=== PATIENT | male | born 1950 | race Caucasian/White ===

== ENCOUNTER 2018-11-06 10:56 | Inpatient (IN) | payer MEDICARE, MEDICAID ==
[2018-11-06] MEDS ORDERED: Lactated Ringer 1,000 ML IV ONE (11:32)
[2018-11-06 11:34] LABS: MEAN CELL VOLUME 90.7 fl (80-99); MEAN CORPUSCULAR HEMOGLOBIN 31.4 pg (27.0-31.0); MEAN CORPUSCULAR HGB CONC 34.6 pg (28.0-36.0); PLATELET COUNT 462 Th/cmm (150-400); RED BLOOD COUNT 2.39 Mil/cmm (3.80-5.80); RED CELL DISTRIBUTION WIDTH 12.3 % (11.5-20.0)
[2018-11-06 11:36] LABS: HEMATOCRIT 21.7 % (41.0-60); HEMOGLOBIN 7.5 gm/dL (12-16); WHITE BLOOD COUNT 17.5 Th/cmm (4.8-10.8)
[2018-11-06] MEDS ORDERED: Piperacillin Sodium/Tazobact 3.375 gm Vial IV ONE (11:41)
[2018-11-06 11:44] LABS: ALB/GLOB RATIO 1.1 (1.0-1.8); ALBUMIN 2.7 gm/dL (4.2-5.5); ALKALINE PHOSPHATASE 81 U/L (34-104); BILIRUBIN,TOTAL 0.5 mg/dL (0.3-1.0); BUN - UREA NITROGEN 73 mg/dL (7-25); CALCIUM SERUM 8.5 mg/dL (8.6-10.3); CARBON DIOXIDE 23.3 mEq/L (21.0-31.0); CHLORIDE 100 mEq/L (98-107); CREATININE - SERUM 1.2 mg/dL (0.7-1.3); GFR AFRICAN-AMERICAN > 60.0 ml/min (>90); GFR NON AFRICAN-AMERICAN > 60.0 ml/min; GLUCOSE 121 mg/dL (70-105); MAGNESIUM 2.2 mg/dL (1.9-2.7); PHOSPHOROUS 4.1 mg/dL (2.5-5.0); POTASSIUM SERUM 3.3 mEq/L (3.5-5.1); SGOT 16 U/L (13-39); SGPT/ALT 24 U/L (7-52); SODIUM SERUM 133 mEq/L (136-145); TOTAL PROTEIN,SERUM 5.2 gm/dL (6.0-8.3)
[2018-11-06 11:57] LABS: BAND NEUTROPHILE 1 % (0-10); BASOPHIL 1 % (0-3); EOSINOPHIL 0 % (0-5); LYMPHOCYTE 9 % (20-50); MONOCYTE 6 % (2-10); NEUTROPHILS 83 % (40-80)
[2018-11-06 11:58] LABS: INR 1.05 (0.5-1.4); PROTHROMBIN TIME (TEST) 10.9 SECONDS (9.5-11.5)
[2018-11-06 12:06] LABS: URINE SOURCE CLEAN C
[2018-11-06] MEDS ORDERED: Sodium Chloride 0.9% 1,000 ML IV SCH (12:06)
[2018-11-06 12:08] LABS: URINE BILIRUBIN SMALL (NEGATIVE); URINE BLOOD NEGATIVE (NEGATIVE); URINE GLUCOSE (UA) NEGATIVE (NEGATIVE); URINE KETONE TRACE mg/dL (NEGATIVE); URINE LEUKOCYTE ESTERASE NEGATIVE (NEGATIVE); URINE MICROSCOPIC INDICATED? YES; URINE NITRATE NEGATIVE (NEGATIVE); URINE PH 5.5 (4.6 - 8.0); URINE PROTEIN TRACE mg/dL (NEGATIVE)
[2018-11-06] MEDS ORDERED: Albuterol/Ipratropium Neb 3 ML AERS HHN PRN (12:09)
--- NOTE | 2018-11-06 12:11 | ED Physician Chart ---
ED Chief Complaint/HPI - Patient Information Date Seen:: 11/06/18 Time Seen:: 11:22 Chief Complaint:: failure to eat History of Present Illness:: failure to eat Allergies:: Allergies Allergy/AdvReac Type Severity Reaction Status Date / Time No Known Allergies Allergy Verified 11/06/18 11:19 Vitals:: Vital Signs - 8 hr 11/06/18 11/06/18 11:22 11:45 Temp 98.1 F HR 97 75 RR 16 13 BP 120/100 78/44 O2 Sat % 100 Review:: Nurse's Note Reviewed, Transfer documents Reviewed ED Review of Systems - Review of Systems General/Constitutional: Other Skin: No skin lesions, No rash, No bruising Head: No headache, No light-headedness Eyes: No loss of vision, No pain, No diplopia ENT: No earache, No nasal drainage, No sore throat, No tinnitus Neck: No neck pain, No swelling, No thyromegaly, No stiffness, No mass noted Cardio Vascular: No chest pain, No palpitations, No PND, No orthopnea, No edema Pulmonary: No SOB, No cough, No sputum, No wheezing GI: No nausea, No vomiting, Diarrhea, No pain, No melena, No hematochezia, No constipation, No hematemesis G/U: No dysuria, No frequency, No hematuria Musculoskeletal: No bone or joint pain, No back pain, No muscle pain Endocrine: No polyuria, No polydipsia Psychiatric: Prior psych history, No depression, No anxiety, No suicidal ideation, No homicidal ideation, No auditory hallucination, No visual hallucination Hematopoietic: No bruising, No lymphadenopathy Allergic/Immuno: No urticaria, No angioedema Neurological: No syncope, No focal symptoms, No weakness, No paresthesia, No headache, No seizure, No dizziness, No confusion, No vertigo ED Past Medical History - Past Medical History Obtainable: No Past Medical History: HTN, Other (benign prostatic hypertrophy) Psychiatricy History: Schizophrenia Family Medical History - Family Member Mother History Unknown: Yes ED Physical Exam - Physical Examination General/Constitutional: Awake, Alert, No distress Other Gen/Cons comments:: pale appearing male who is playing with his stool. Other Head comments:: alopecia on back of head. Eyes: Lids, conjuctiva normal Other Skin comments:: saliva on tongue. Poor dental hygiene. pale. ENMT: External ears, nose nl Neck: Nontender, No nuchal rigidity, No stridor Respiratory: Nl effort/Exclusion, Clear to Auscultation, No Wheeze/Rhonchi/Rales Cardio Vascular: RRR, No murmur, gallop, rubs, NL S1 S2 GI: No tenderness/rebounding/guarding, No organomegaly, No hernia, Normal BS's, Nondistended, No mass/bruits, No McBurney tenderness : No CVA tenderness Extremities: No tenderness or effusion, Full ROM, normal strength in all extremities, No edema, Normal digits & nails Neuro/Psych: Normal sensory exam, Mood normal, Normal gait, No focal deficits Other Neuro/Psych comments:: weak. ED Labs/Radiology/EKG Results - Lab Results Results: Laboratory Tests 11/06/18 11/06/18 11/06/18 11:20 11:20 11:20 WBC 17.5 H RBC 2.39 L Hgb 7.5 L* Hct 21.7 L MCV 90.7 MCH 31.4 H MCHC Differential 34.6 RDW 12.3 Plt Count 462 H MPV 8.0 Add Manual Diff YES Band Neutrophils % 1 Neutrophils (Manual) 83 H Lymphocytes 9 L Monocytes 6 Eosinophils 0 Basophils 1 PT INR PTT (Actin FS) Sodium 133 L Potassium 3.3 L Chloride 100 Carbon Dioxide 23.3 Anion Gap 13.0 BUN 73 H Creatinine 1.2 Est GFR ( Amer) > 60.0 Est GFR (Non-Af Amer) > 60.0 BUN/Creatinine Ratio 60.8 Glucose 121 H Whole Bld Lactic Acid 1.34 Calcium 8.5 L Phosphorus 4.1 Magnesium 2.2 Total Bilirubin 0.5 AST 16 ALT 24 Alkaline Phosphatase 81 Total Protein 5.2 L Albumin 2.7 L Globulin 2.5 Albumin/Globulin Ratio 1.1 11/06/18 11:20 WBC RBC Hgb Hct MCV MCH MCHC Differential RDW Plt Count MPV Add Manual Diff Band Neutrophils % Neutrophils (Manual) Lymphocytes Monocytes Eosinophils Basophils PT 10.9 INR 1.05 PTT (Actin FS) 26.5 Sodium Potassium Chloride Carbon Dioxide Anion Gap BUN Creatinine Est GFR ( Amer) Est GFR (Non-Af Amer) BUN/Creatinine Ratio Glucose Whole Bld Lactic Acid Calcium Phosphorus Magnesium Total Bilirubin AST ALT Alkaline Phosphatase Total Protein Albumin Globulin Albumin/Globulin Ratio ED Assessment - Assessment General Assessment: report given to Dr. Uribe. ICU bed ordered. EKG from 12:00:32 p.m.: normal sinus rhythm with nonspecific ST T wave changes. called Dr. Uribe back to tell him that we were starting Levophed and that I have written for stat packed red blood cells X 2 PICC line ordered. CXR: ED Septic Shock - . Is Septic Shock (SBP<90, OR Lactate>4 mmol\L) present?: Yes - <6hrs of presentation: Vital Signs: Vital Signs - 8 hr 11/06/18 11/06/18 11:22 11:45 Temp 98.1 F HR 97 75 RR 16 13 BP 120/100 78/44 O2 Sat % 100 Assessment of Lungs: Lung CTA bilateral, No Rhonchi, No Rales, No Wheezing, No Stridor, Documented in PE Assessment of Heart: RRR, No Gallops, No Rub, No Murmur, Documented in PE EKG Interpretation: NSR, Documented in Result Capillary refill evaluation: Capillary refill > 2 secs Skin Exam: Warm, Dry, Pallor, No Diaphoresis, No Mottling, No Edema, No Erythema , Documented in PE - Time of Reassessment Time of Reassessment: 12:23 ED Reassessment (Disposition) - Reassessment Reassessment Condition:: Improved - Diagnosis Diagnosis:: Sepsis Leukocytosis Thrombocytosis Hypotension Anemia Hypokalemia - Patient Disposition Discharge/Transfer:: Acute Care w/in this hosp Admitted to:: ICU Condition at Disposition:: Stable, Improved
[2018-11-06 12:14] LABS: URINE CLARITY HAZY (CLEAR); URINE COLOR YELLOW
[2018-11-06] MEDS ORDERED: Acetaminophen 500 MG TAB PO PRN (12:14)
[2018-11-06 12:15] LABS: URINE AMORPHOUS SEDIMENT MODERATE URATES (NONE SEEN); URINE BACTERIA NONE SEEN /hpf (NONE SEEN); URINE EPITHELIAL CELLS OCCASIONAL /lpf (FEW); URINE RBC 0-2 /hpf (0-5)
[2018-11-06 12:23] LABS: AMPHETAMINE URINE NEGATIVE (NEGATIVE); BARBITURATES URINE NEGATIVE (NEGATIVE); BENZODIAZEPINES QUAL URINE NEGATIVE (NEGATIVE); CANNABINOID THC NEGATIVE (NEGATIVE); COCAINE METABOLITE QUAL URINE NEGATIVE (NEGATIVE); METHADONE URINE NEGATIVE (NEGATIVE); METHAMPHETAMINES QUAL URINE NEGATIVE (NEGATIVE); OPIATES (MORPHINE) QUAL. URINE NEGATIVE (NEGATIVE); PHENCYCLIDINE (PCP) URINE NEGATIVE (NEGATIVE); TRICYCLICS (TCA) QUAL. URINE NEGATIVE (NEGATIVE)
[2018-11-06] MEDS: Albuterol/Ipratropium Neb 3 ML AERS HHN SCH ×2 (13:07→18:42)
[2018-11-06 13:51] VITALS: BP 107/48
[2018-11-06] MEDS ORDERED: 0.9% NS w/20 mEq KCL 1,000 ML IV SCH (14:51)
--- NOTE | 2018-11-06 15:52 | History & Physical ---
ADMIT DATE: 11/06/2018 CHIEF COMPLAINT: The patient has not been eating and drinking for last several days. HISTORY OF PRESENT ILLNESS: The patient is a 68-year-old male resident of assisted living, transferred to Emergency Room as the patient was not eating and drinking for last several days. PAST MEDICAL HISTORY: Significant for peptic ulcer disease, gastritis, arthritis, osteoporosis. SOCIAL HISTORY: No history of smoking or alcohol abuse. FAMILY HISTORY: Not available. REVIEW OF SYSTEMS: On arrival in the Emergency Room, the patient was found to be hypotensive requiring IV fluid challenge and has been started on Levophed. PHYSICAL EXAMINATION: GENERAL: Average male in no obvious respiratory distress. VITAL SIGNS: Include a blood pressure of 110/70, heart rate of 100, respiration rate of 18. SKIN: Showed poor turgor. HEENT: Pale conjunctivae. NECK: Supple. LUNGS: Clear. HEART: First and second heart sounds normal. Systolic present. ABDOMEN: Soft, no masses, no tenderness. EXTREMITIES: Show arthritis. NEUROLOGIC: The patient awake with no focal motor deficit. LABORATORY DATA: Include white count 17.5, hemoglobin 7.5, hematocrit 21.7, platelet count of 462. Sodium 133, potassium 3.3, chloride 100, BUN 73, creatinine of 1.2. Troponins are negative. Urine is negative. ADMITTING DIAGNOSES: Septic shock, hypertension, anemia, acute renal failure, possible pneumonia, peptic ulcer disease, gastritis, arthritis, osteoporosis, hypokalemia. TREATMENT PLAN: The patient admitted to ICU. The patient is started, currently on Levophed. The patient started on IV antibiotic, bronchodilator treatment and IV Protonix. The patient will have IV fluid, potassium supplementation. Electrolytes will be carefully monitored. An ID as well as cardiac consultation requested for. GI consultation for anemia workup. PROGNOSIS: Fair to guarded. JOB# [id number]
[2018-11-06] MEDS: 0.9% NS w/20 mEq KCL 1,000 ML IV SCH (20:00)
[2018-11-07] MEDS: Albuterol/Ipratropium Neb 3 ML AERS HHN SCH ×4 (00:53→19:51)
--- NOTE | 2018-11-07 02:34 | Consultation ---
DATE OF CONSULTATION: 11/06/2018 HISTORY OF PRESENT ILLNESS: This 68-year-old male was seen and examined at the courtesy of Dr. Uribe. Information was obtained from the chart. Proper history is not available from the patient. The patient was in [facility]. He was transferred to the Emergency Room and then admitted here. Apparently, the history was that the patient has not been eating or drinking for the last several days. The patient does have history of hypertension, history of peptic ulcer disease, arthritis, and osteoporosis. He was evaluated in the Emergency Room and admitted. PAST MEDICAL HISTORY: Usually is peptic ulcer disease, gastritis, arthritis, osteoporosis, and hypertension. SOCIAL HISTORY: The patient denies smoking or drinking. FAMILY HISTORY: Not available. REVIEW OF SYSTEMS: The patient says there are no chest pains, no shortness of breath, no history of PND, no history of orthopnea, no history of cough, no history of fever, no history of hemoptysis, history of some abdominal discomfort, no history of hematuria, mostly swelling of the legs. PHYSICAL EXAMINATION: VITAL SIGNS: Heart rate was 71, blood pressure was 102/46, respirations 15, O2 saturation 100% on nasal oxygen, temperature 97.8. The patient is on Levophed at 6 mcg per minute. SKIN: Normal. HEAD: Normocephalic. EYES: Conjunctivae were pink. There is no icterus in the eyes. Pupils reacting to light. NECK: There were no increased jugular venous distention, no thyromegaly, no lymphadenopathy. Carotids equal on both sides. CHEST: Bilaterally symmetrical. Moves well with respiration. Respiratory movements equal on both sides. Trachea is central. There is note to percussion. Breath sound, few scattered rales. CARDIOVASCULAR SYSTEM: PMI not well localized. There is no positional thrill. No parasternal heave. S1 normal, S2 physiologic. There were no S3, no rub. ABDOMEN: Soft. No tenderness, no rigidity, no guarding. Bowel sounds were present. EXTREMITIES: No edema, no calf tenderness. Peripheral pulses slightly diminished. LABORATORY DATA: WBC count 17.5, RBC 2.39, hemoglobin 7.5, hematocrit 21.7, MCV 90.7, MCH 31.4, MCHC 34.6, platelet count 462. Sodium 133, potassium 3.3, chloride 100, carbon dioxide 33.3. BUN 73, creatinine 1.2, GFR more than 60, glucose 121. Lactic acid 1.34, calcium 8.5, phosphorus 4.1, magnesium 2.2, total bilirubin 0.5, AST 16, ALT 24, alkaline phosphatase 81, total protein 5.2, albumin 2.7, globulin 2.5. The patient on Zosyn, vancomycin, albuterol treatments. The patient is also getting Protonix. Potassium supplement has been given, on Levophed. The patient will need IV fluids. IMPRESSION: Hypotension, leukocytosis, possible sepsis, possible septic shock, history of abdominal pain, anemia, status post transfusion, history of peptic ulcer disease, history of gastritis, azotemia, acute renal failure, question of pneumonia, hypokalemia, malnutrition. PLAN: Suggest to continue present management. To continue with IV fluids D5 and normal saline at 100 mL an hour. The patient has no cardiac decompensation. Chest is clear. Chest x-ray does not show any CHF. Continue other medications. [facility]# [id number]
[2018-11-07 04:51] LABS: MEAN CELL VOLUME 90.6 fl (80-99)
[2018-11-07 05:52] LABS: MEAN CORPUSCULAR HEMOGLOBIN 30.3 pg (27.0-31.0); MEAN CORPUSCULAR HGB CONC 33.4 pg (28.0-36.0); MEAN PLATELET VOLUME 8.2 fl; PLATELET COUNT 401 Th/cmm (150-400); RED BLOOD COUNT 2.56 Mil/cmm (3.80-5.80); RED CELL DISTRIBUTION WIDTH 12.8 % (11.5-20.0)
[2018-11-07 06:10] LABS: HEMATOCRIT 23.2 % (41.0-60); HEMOGLOBIN 7.8 gm/dL (12-16); WHITE BLOOD COUNT 15.7 Th/cmm (4.8-10.8)
[2018-11-07 06:20] LABS: ALBUMIN 2.2 gm/dL (4.2-5.5); ALKALINE PHOSPHATASE 61 U/L (34-104); BILIRUBIN,TOTAL 0.6 mg/dL (0.3-1.0); BUN - UREA NITROGEN 48 mg/dL (7-25); CALCIUM SERUM 7.5 mg/dL (8.6-10.3); CARBON DIOXIDE 20.7 mEq/L (21.0-31.0); CHLORIDE 110 mEq/L (98-107); CREATININE - SERUM 0.7 mg/dL (0.7-1.3); GFR AFRICAN-AMERICAN > 60.0 ml/min (>90); GFR NON AFRICAN-AMERICAN > 60.0 ml/min; GLUCOSE 147 mg/dL (70-105); POTASSIUM SERUM 3.7 mEq/L (3.5-5.1); SGOT 15 U/L (13-39); SGPT/ALT 17 U/L (7-52); SODIUM SERUM 139 mEq/L (136-145); TOTAL PROTEIN,SERUM 4.4 gm/dL (6.0-8.3)
--- NOTE | 2018-11-07 07:48 | Diagnostic Imaging Report ---
Portable chest x-ray Time: 1231 History: Fever Allowing for portable technique the heart size is normal. No focal pulmonary parenchymal processes. No hilar or mediastinal abnormalities. Impression: No acute abnormalities.
[2018-11-07] MEDS: Potassium Chloride 20 mEq ER Tab PO SCH (08:02)
[2018-11-07 08:08] LABS: NEUTROPHILS 84 % (40-80)
[2018-11-07 08:09] LABS: BAND NEUTROPHILE 1 % (0-10); LYMPHOCYTE 10 % (20-50); MONOCYTE 5 % (2-10)
[2018-11-07] MEDS ORDERED: Potassium Chloride 20 mEq ER Tab PO SCH (09:00)
--- NOTE | 2018-11-07 09:23 | Diagnostic Imaging Report ---
CHEST X-RAY: AP view INDICATION: Elevated white blood cell count COMPARISON: 11/06/2018 FINDINGS: There is no focal consolidation or pleural effusions The heart is normal in size. Degenerative changes of the spine are noted with scoliosis. IMPRESSION: No focal consolidation identified.
--- NOTE | 2018-11-07 09:28 | Diagnostic Imaging Report ---
KUB single view HISTORY: Elevated white blood cell count COMPARISON: None FINDINGS: There is copious amount of stool throughout the colon with distal fecal impaction. Gas-filled loops of bowel are noted. Osseous structures are intact. IMPRESSION: Copious amount of stool with distal fecal impaction. Correlate clinically for constipation.
--- NOTE | 2018-11-07 10:05 | Progress Notes ---
DATE: 11/07/2018 INTERNAL MEDICINE FOLLOWUP PROGRESS NOTE The patient is in ICU bed 3, admitted yesterday. SUBJECTIVE: The patient was very agitated as per nurse last night received Ativan, currently sleeping. The patient is on IV fluid. No obvious shortness of breath, no vomiting, no diarrhea, no melena, no hematochezia. OBJECTIVE: VITAL SIGNS: Stable. LUNGS: Show occasional rhonchi, occasional crepitation, no bronchial breathing. HEART EXAM: First and second heart sounds normal. ABDOMEN: Soft. Kidneys are not palpable. EXTREMITIES: Show arthritis. NEUROLOGIC: The patient is lethargic. The patient did receive Ativan. LABORATORY DATA: Labs include sodium 139, potassium 3.7, chloride 110, bicarbonate 20.7, BUN 48, creatinine 0.7. White count of 15.7, hemoglobin 7.8, hematocrit 43.2, platelet count of 401. MEDICAL DIAGNOSES: Septic shock, pneumonia, chronic obstructive pulmonary disease, anemia, acute renal failure, failure to thrive and advanced psychosis. The patient did receive blood yesterday. The patient is awaiting GI workup. PLAN: The patient will continue with the IV antibiotic. ID consult reviewed. Renal functions are much improved. Continue current medical management. JOB# [id number]
[2018-11-07] MEDS: 0.9% NS w/20 mEq KCL 1,000 ML IV SCH (11:14)
--- NOTE | 2018-11-07 11:58 | Consultation ---
DATE OF CONSULTATION: 11/07/2018 PSYCHIATRIC CONSULTATION PHYSICIAN REQUESTING CONSULTATION: Dr. Uribe. REASON FOR CONSULTATION: Agitation. HISTORY OF PRESENT ILLNESS: This patient is a 68-year-old resident of Assisted Living, admitted for failure to thrive and the patient has been admitted to the ICU at this time. I tried to interview the patient, the patient has been getting out of control and has been getting out of the bed with all the IV lines hooked up. The patient has no insight into his illness and the patient is not providing much of information and it is decided to use ____ Haldol as needed for the first and then calmed the patient down and then follow the patient up with supportive therapy and when the patient calms down, I am going to be coming back to see the patient to do the complete evaluation at this point in time, the patient is not willing to comply with the treatment. DIAGNOSIS: Psychotic disorder, not otherwise specified. PLAN: To use the Haldol on a p.r.n. and follow the patient. JOB# [id number]
--- NOTE | 2018-11-07 12:36 | Diagnostic Imaging Report ---
Ultrasound abdomen HISTORY: Elevated white blood cell count COMPARISON: None Technique: Sonography of the abdomen was performed in multiple planes. FINDINGS: Exam is limited as patient was uncooperative. The liver demonstrates normal echogenicity and measures 16.5 cm. No evidence of focal lesions. Diffuse gallbladder sludge is noted. The gallbladder wall measures 3 mm. Tiny gallstones cannot be excluded. The CBD measures 4 mm. The right kidney measures 9.1 x 5.5 cm. No evidence of focal lesions or hydronephrosis. The left kidney measures 10.2 x 7.2 cm. Left renal sonolucent are seen the largest an exophytic lesion measuring 3.1 x 2.4 cm with internal echoes probably a cyst with hemorrhagic or proteinaceous components. No hydronephrosis. The spleen measures 10.1 cm. IMPRESSION: Diffuse sludge filled gallbladder. Tiny gallstones cannot be excluded. Borderline prominent gallbladder wall is noted. No pericholecystic fluid. Please correlate with the findings. If necessary, nuclear medicine HIDA scan may be obtained for further assessment Borderline hepatomegaly Left renal lesions probably representing cysts the largest of which demonstrates internal echoes which may be due to hemorrhagic or proteinaceous components. Short-term follow up CT would provide additional detail and assessment.
--- NOTE | 2018-11-07 13:34 | General Progress Note ---
Subjective - Review of Systems Service Date: 11/07/18 Subjective: Patient awake alert but complaining of abdominal pain Objective - Results Result Diagrams: 11/07/18 04:05 11/07/18 04:05 Recent Labs: Laboratory Last Values WBC 15.7 Th/cmm (4.8-10.8) H 11/07/18 04:05 RBC 2.56 Mil/cmm (3.80-5.80) L 11/07/18 04:05 Hgb 7.8 gm/dL (12-16) L* 11/07/18 04:05 Hct 23.2 % (41.0-60) L 11/07/18 04:05 MCV 90.6 fl (80-99) 11/07/18 04:05 MCH 30.3 pg (27.0-31.0) 11/07/18 04:05 MCHC Differential 33.4 pg (28.0-36.0) 11/07/18 04:05 RDW 12.8 % (11.5-20.0) 11/07/18 04:05 Plt Count 401 Th/cmm (150-400) H 11/07/18 04:05 MPV 8.2 fl 11/07/18 04:05 Add Manual Diff YES 11/07/18 04:05 Band Neutrophils % 1 % (0-10) 11/07/18 04:05 Neutrophils (Manual) 84 % (40-80) H 11/07/18 04:05 Lymphocytes 10 % (20-50) L 11/07/18 04:05 Monocytes 5 % (2-10) 11/07/18 04:05 Eosinophils 0 % (0-5) 11/06/18 11:20 Basophils 1 % (0-3) 11/06/18 11:20 Smear Path Review 11/06/18 11:54 PT 10.9 SECONDS (9.5-11.5) 11/06/18 11:20 INR 1.05 (0.5-1.4) 11/06/18 11:20 PTT (Actin FS) 26.5 SECONDS (26.0-38.0) 11/06/18 11:20 Sodium 139 mEq/L (136-145) 11/07/18 04:05 Potassium 3.7 mEq/L (3.5-5.1) 11/07/18 04:05 Chloride 110 mEq/L (98-107) H 11/07/18 04:05 Carbon Dioxide 20.7 mEq/L (21.0-31.0) L 11/07/18 04:05 Anion Gap 12.0 (7.0-16.0) 11/07/18 04:05 BUN 48 mg/dL (7-25) H 11/07/18 04:05 Creatinine 0.7 mg/dL (0.7-1.3) 11/07/18 04:05 Est GFR ( Amer) > 60.0 ml/min (>90) 11/07/18 04:05 Est GFR (Non-Af Amer) > 60.0 ml/min 11/07/18 04:05 BUN/Creatinine Ratio 68.6 11/07/18 04:05 Glucose 147 mg/dL (70-105) H 11/07/18 04:05 Whole Bld Lactic Acid 1.34 mmol/L (0.60-1.99) 11/06/18 11:20 Calcium 7.5 mg/dL (8.6-10.3) L 11/07/18 04:05 Phosphorus 4.1 mg/dL (2.5-5.0) 11/06/18 11:20 Magnesium 2.2 mg/dL (1.9-2.7) 11/06/18 11:20 Total Bilirubin 0.6 mg/dL (0.3-1.0) 11/07/18 04:05 AST 15 U/L (13-39) 11/07/18 04:05 ALT 17 U/L (7-52) 11/07/18 04:05 Alkaline Phosphatase 61 U/L (34-104) 11/07/18 04:05 Troponin I 0.01 ng/mL (0.01-0.05) 11/06/18 11:20 Total Protein 4.4 gm/dL (6.0-8.3) L 11/07/18 04:05 Albumin 2.2 gm/dL (4.2-5.5) L 11/07/18 04:05 Globulin 2.2 gm/dL 11/07/18 04:05 Albumin/Globulin Ratio 1.0 (1.0-1.8) 11/07/18 04:05 TSH 0.98 uIU/ml (0.34-5.60) 11/06/18 11:20 Urine Source CLEAN C 11/06/18 12:00 Urine Color YELLOW 11/06/18 12:00 Urine Clarity HAZY (CLEAR) 11/06/18 12:00 Urine pH 5.5 (4.6 - 8.0) 11/06/18 12:00 Ur Specific [place] 1.020 (1.005-1.030) 11/06/18 12:00 Urine Protein TRACE mg/dL (NEGATIVE) 11/06/18 12:00 Urine Glucose (UA) NEGATIVE mg/dL (NEGATIVE) 11/06/18 12:00 Urine Ketones TRACE mg/dL (NEGATIVE) 11/06/18 12:00 Urine Blood NEGATIVE (NEGATIVE) 11/06/18 12:00 Urine Nitrate NEGATIVE (NEGATIVE) 11/06/18 12:00 Urine Bilirubin SMALL (NEGATIVE) H 11/06/18 12:00 Urine Urobilinogen 1.0 E.U./dL (0.2 - 1.0) 11/06/18 12:00 Ur Leukocyte Esterase NEGATIVE (NEGATIVE) 11/06/18 12:00 Urine RBC 0-2 /hpf (0-5) H 11/06/18 12:00 Urine WBC 2-5 /hpf (0-5) 11/06/18 12:00 Ur Epithelial Cells OCCASIONAL /lpf (FEW) 11/06/18 12:00 Amorphous Sediment MODERATE URATES (NONE SEEN) 11/06/18 12:00 Urine Bacteria NONE SEEN /hpf (NONE SEEN) 11/06/18 12:00 Urine Opiates Screen NEGATIVE (NEGATIVE) 11/06/18 12:00 Urine Methadone Screen NEGATIVE (NEGATIVE) 11/06/18 12:00 Ur Barbiturates Screen NEGATIVE (NEGATIVE) 11/06/18 12:00 Ur Tricyclics Screen NEGATIVE (NEGATIVE) 11/06/18 12:00 Ur Phencyclidine Scrn NEGATIVE (NEGATIVE) 11/06/18 12:00 Amphetamines Screen NEGATIVE (NEGATIVE) 11/06/18 12:00 U Methamphetamines Scrn NEGATIVE (NEGATIVE) 11/06/18 12:00 U Benzodiazepines Scrn NEGATIVE (NEGATIVE) 11/06/18 12:00 U Cocaine Metab Screen NEGATIVE (NEGATIVE) 11/06/18 12:00 U Cannabinoids Screen NEGATIVE (NEGATIVE) 11/06/18 12:00 Blood Type A POSITIVE 11/06/18 11:54 Antibody Screen NEGATIVE 11/06/18 11:54 Crossmatch See Detail 11/06/18 11:54 - Physical Exam Vitals and I&O: Vital Signs Temp 98.3 F 11/07/18 11:00 Pulse 79 11/07/18 13:25 Resp 17 11/07/18 13:25 BP 106/44 11/07/18 11:30 Pulse Ox 100 11/07/18 13:25 Intake & Output 11/06/18 11/07/18 11/07/18 18:59 06:59 18:59 Intake Total 3465.274 446.685 Output Total 220 Balance 3245.274 446.685 Weight (lbs) 59.375 kg 59.375 kg Intake: Intake, IV Amount 2715.274 446.685 0.9% NS w/20 mEq KCL 1, 1000 000 ml @ 100 mls/hr IV . Q10H [facility] Rx#:[id number] 0.9% NS w/20 mEq KCL 1, 203 000 ml @ 70 mls/hr IV . [id number] [facility] Rx#:[id number] Norepinephrine 4 mg In 483.212 146.685 Dextrose 5% 250 ml @ 8 MCG/MIN 30.48 mls/hr IV TITR PRN Rx#:[id number] Piperacillin Sodium/ 150 50 Tazobact 3.375 gm In Sodium Chloride 0.9% 50 ml @ 100 mls/hr IV Q6HR [facility] Rx#:[id number] Vancomycin HCl 1.25 gm In 250 Sodium Chloride 0.9% 250 ml @ 165 mls/hr IV ONCE ONE Rx#:[id number] Vancomycin HCl 1.25 gm In 250 Sodium Chloride 0.9% 250 ml @ 165 mls/hr IV Q12H [facility] Rx#:[id number] Oral 250 Blood Product 500 Output: Urine 220 Other: # Bowel Movements 3 Stool Characteristics Soft Soft Soft Liquid Hard Hard Black Black Weight Source Estimated Bedscale Active Medications: Current Medications Acetaminophen (Tylenol Extra Strength) 500 mg PO Q6H PRN PRN Reason: Pain or Fever >101 Stop: 01/05/19 12:14 Albuterol/Ipratropium (Duoneb Neb) 3 ml HHN Q2H PRN PRN Reason: Shortness of Breath or Wheeze Stop: 01/05/19 12:14 Albuterol/Ipratropium (Duoneb Neb) 3 ml HHN Q6HRT [facility]ANE Stop: 01/05/19 12:59 Last Admin: 11/07/18 13:25 Dose: 3 ml Haloperidol (Haldol) 1 mg PO BID PRN; Protocol PRN Reason: Agitation Stop: 01/06/19 16:59 Piperacillin Sod/Tazobactam (Sod 3.375 gm/ Sodium Chloride) 50 mls @ 100 mls/ hr IV Q6HR ZANE Stop: 01/05/19 17:59 Last Infusion: 11/07/18 11:41 Dose: Infused Norepinephrine Bitartrate 4 mg (/ Dextrose) 254 mls @ 30.48 mls/hr IV TITR PRN ; Protocol PRN Reason: BP MAINTENANCE (PER PROTOCOL) Stop: 01/05/19 15:59 Last Titration: 11/07/18 12:17 Dose: 4 mcg/min, 15.24 mls/hr Vancomycin HCl 1.25 gm/ Sodium (Chloride) 250 mls @ 165 mls/hr IV Q12H [facility]ANE Stop: 01/06/19 08:59 Last Infusion: 11/07/18 10:40 Dose: Infused Potassium Chloride/Sodium Chloride (0.9% Ns W/20 Meq Kcl) 1,000 mls @ 100 mls/ hr IV .Q10H ZANE Stop: 01/06/19 02:14 Last Admin: 11/07/18 11:14 Dose: 100 mls/hr Lorazepam (Ativan) 1 mg IM Q4HR PRN; Protocol PRN Reason: agitation Stop: 01/06/19 07:59 Miscellaneous (Vancomycin Iv Per Pharmacy) 1 ea MC PRN PRN PRN Reason: PROTOCOL Stop: 01/05/19 14:52 Pantoprazole Sodium (Protonix) 40 mg IVP DAILY ZANE Stop: 01/06/19 08:59 Last Admin: 11/07/18 09:05 Dose: 40 mg Potassium Chloride (Klor-Con) 20 meq PO DAILY ZANE Stop: 01/06/19 08:59 Last Admin: 11/07/18 08:02 Dose: Not Given General: Alert HEENT: Other (normal) Neck: Supple, JVD, +2 carotid pulse wo bruit (flat) Cardiovascular: Regular rate, Normal S1, Normal S2, Systolic murmurs Lungs: Clear to auscultation, Normal air movement Abdomen: Bowel sounds, Soft, Other (no organomegaly) Extremities: Pulses (normal) Neurological: Normal gait Skin: Significant lesion Psych/Mental Status: Other (psychosis) Assessment/Plan - Problem List Patient Problems: All Active Problems POOR ORAL INTAKE (Acute) - Assessment Assessment: Septic shock Hypotension Iron deficiency anemia Peptic ulcer Hypokalemia 6 daily stage II Psychotic COPD Pneumonia - Plan Plan: Continue patient on Levophed IV antibiotics and GI evaluation for anemia get an echocardiogram
[2018-11-07 16:49] LABS: % BASOPHILS 0.4 % (0.0-2.0); % EOSINOPHILS 0.4 % (0.0-5.0); % LYMPHOCYTES 11.8 % (20.0-50.0); % MONOCYTES 6.7 % (2.0-10.0); % NEUTROPHILS 80.7 % (40.0-80.0); LYMPHOCYTE ABSOLUTE 1.3 Th/cmm (1.5-3.0); MEAN CELL VOLUME 89.4 fl (80-99); MEAN CORPUSCULAR HGB CONC 33.5 pg (28.0-36.0); MONOCYTE ABSOLUTE 0.8 Th/cmm (0.3-1.0); NEUTROPHILE ABSOLUTE 9.3 Th/cmm (1.8-8.0); PLATELET COUNT 376 Th/cmm (150-400); RED BLOOD COUNT 2.44 Mil/cmm (3.80-5.80); RED CELL DISTRIBUTION WIDTH 12.9 % (11.5-20.0); WHITE BLOOD COUNT 11.4 Th/cmm (4.8-10.8)
[2018-11-07 16:59] LABS: HEMATOCRIT 21.8 % (41.0-60); HEMOGLOBIN 7.3 gm/dL (12-16)
[2018-11-07] MEDS ORDERED: Diltiazem 5 mg/mL 5mL Vial IVP PRN (17:18)
[2018-11-07] MEDS ORDERED: Diltiazem 5 mg/mL 5mL Vial IVP ONE (17:20)
[2018-11-07] MEDS ORDERED: Norepinephrine 4 mg/4mL Vial IV ONE (19:50)
[2018-11-08] MEDS: Albuterol/Ipratropium Neb 3 ML AERS HHN SCH ×4 (00:02→19:32)
[2018-11-08] MEDS ORDERED: Norepinephrine 4 mg/4mL Vial IV ONE ×2 (01:09→03:29)
[2018-11-08] MEDS: 0.9% NS w/20 mEq KCL 1,000 ML IV SCH ×2 (01:26→18:36)
--- NOTE | 2018-11-08 02:55 | Infectious Disease Prog Note ---
Infectious Disease Subjective - Review of Systems Service Date: 11/07/18 Subjective: cc hypotension/ stool impaction hpi- kub shows stool impaction , ct ordeered hg 7.3 prbc if ok with gi scheduled for egd ros no efvr o/e vs chets claer anbs soft ext pulse Vital Signs - 24 hr 11/07/18 11/07/18 11/07/18 03:00 03:15 03:30 Temp HR 74 87 73 RR 15 BP 102/49 91/54 91/54 O2 Sat % 100 11/07/18 11/07/18 11/07/18 03:45 04:00 04:15 Temp 97.9 F HR 73 79 79 RR 16 BP 96/49 99/51 98/56 O2 Sat % 100 11/07/18 11/07/18 11/07/18 04:30 04:45 05:00 Temp HR 81 77 81 RR 18 BP 98/56 95/53 102/53 O2 Sat % 100 11/07/18 11/07/18 11/07/18 05:15 05:30 05:45 Temp HR 73 73 78 RR BP 96/56 99/56 107/60 O2 Sat % 11/07/18 11/07/18 11/07/18 06:00 06:15 06:30 Temp HR 78 92 69 RR 16 BP 107/60 93/43 107/61 O2 Sat % 100 11/07/18 11/07/18 11/07/18 06:45 07:00 07:15 Temp HR 67 68 72 RR 17 BP 103/52 100/53 107/61 O2 Sat % 99 11/07/18 11/07/18 11/07/18 07:17 07:30 07:45 Temp HR 68 68 78 RR 14 BP 106/46 96/56 O2 Sat % 100 11/07/18 11/07/18 11/07/18 08:00 08:15 08:30 Temp 97.7 F HR 96 74 79 RR 18 BP 107/72 103/47 108/49 O2 Sat % 100 11/07/18 11/07/18 11/07/18 08:45 09:00 09:15 Temp HR 84 77 77 RR 17 BP 114/57 102/58 102/57 O2 Sat % 100 11/07/18 11/07/18 11/07/18 09:30 09:45 10:00 Temp HR 76 79 79 RR 14 BP 104/62 103/56 103/56 O2 Sat % 100 11/07/18 11/07/18 11/07/18 10:15 10:30 10:45 Temp HR 74 71 77 RR BP 109/58 106/60 104/60 O2 Sat % 11/07/18 11/07/18 11/07/18 11:00 11:15 11:30 Temp 98.3 F HR 79 75 75 RR 18 BP 110/64 122/65 106/44 O2 Sat % 98 11/07/18 11/07/18 11/07/18 11:45 12:00 12:15 Temp 98 F HR 75 87 69 RR 18 BP 104/71 131/66 112/59 O2 Sat % 100 11/07/18 11/07/18 11/07/18 12:30 12:45 13:00 Temp HR 76 74 80 RR 19 BP 116/56 121/67 120/70 O2 Sat % 100 11/07/18 11/07/18 11/07/18 13:15 13:25 13:30 Temp HR 80 79 83 RR 17 BP 104/48 102/83 O2 Sat % 100 11/07/18 11/07/18 11/07/18 13:45 14:00 14:15 Temp HR 89 83 85 RR 18 BP 100/75 115/62 114/58 O2 Sat % 100 11/07/18 11/07/18 11/07/18 15:00 16:00 17:00 Temp 97.6 F HR 85 83 74 RR 18 18 16 BP 112/56 101/53 94/61 O2 Sat % 100 100 100 11/07/18 11/07/18 11/07/18 17:06 17:15 17:30 Temp HR 195 186 78 RR BP 88/59 80/53 83/48 O2 Sat % 11/07/18 11/07/18 11/07/18 17:35 18:00 18:35 Temp HR 195 87 82 RR 16 BP 106/57 O2 Sat % 100 11/07/18 11/07/18 11/07/18 19:00 19:15 19:30 Temp HR 85 80 81 RR 18 BP 120/67 117/66 99/66 O2 Sat % 99 11/07/18 11/07/1819 19:45 19:46 20:00 Temp 98.1 F HR 78 74 75 RR 18 20 BP 107/66 105/67 O2 Sat % 100 100 11/07/18 11/07/18 11/07/18 20:15 20:30 20:45 Temp HR 85 75 85 RR BP 98/60 111/75 98/60 O2 Sat % 11/07/18 11/07/18 11/07/18 21:00 21:15 21:30 Temp 98.4 F HR 78 85 75 RR 19 BP 113/56 123/60 113/78 O2 Sat % 100 11/07/18 11/07/18 11/07/18 21:45 22:00 22:15 Temp 98.6 F HR 76 76 77 RR 12 BP 99/47 99/59 109/63 O2 Sat % 100 11/07/18 11/07/18 11/07/18 22:30 22:45 23:00 Temp 98.5 F HR 83 76 71 RR 19 BP 106/55 92/54 123/63 O2 Sat % 100 11/07/18 11/07/18 11/07/18 23:15 23:30 23:45 Temp HR 106 113 118 RR BP 91/50 96/60 93/42 O2 Sat % 11/08/18 11/08/18 11/08/18 00:00 00:02 00:15 Temp 98.4 F HR 118 120 97 RR 14 16 BP 88/52 90/51 O2 Sat % 100 95 11/08/18 11/08/18 11/08/18 00:30 00:45 01:00 Temp 98.4 F HR 94 98 83 RR 20 BP 86/53 89/51 78/48 O2 Sat % 100 11/08/18 11/08/18 11/08/18 01:15 01:30 01:45 Temp HR 90 97 89 RR BP 80/49 97/47 99/47 O2 Sat % 11/08/18 11/08/18 11/08/18 02:00 02:15 02:30 Temp 98.4 F HR 81 84 84 RR 13 BP 103/47 93/46 94/54 O2 Sat % 100 Laboratory Results - last 24 hr 11/06/18 11/07/18 11/07/18 11:54 04:05 04:05 WBC 15.7 H RBC 2.56 L Hgb 7.8 L* Hct 23.2 L MCV 90.6 MCH 30.3 MCHC Differential 33.4 RDW 12.8 Plt Count 401 H MPV 8.2 Add Manual Diff YES Neutrophils % Band Neutrophils % 1 Lymphocytes % Monocytes % Eosinophils % Basophils % Neutrophils (Manual) 84 H Lymphocytes 10 L Monocytes 5 Sodium 139 Potassium 3.7 Chloride 110 H Carbon Dioxide 20.7 L Anion Gap 12.0 BUN 48 H Creatinine 0.7 Est GFR ( Amer) > 60.0 Est GFR (Non-Af Amer) > 60.0 BUN/Creatinine Ratio 68.6 Glucose 147 H Calcium 7.5 L Total Bilirubin 0.6 AST 15 ALT 17 Alkaline Phosphatase 61 Total Protein 4.4 L Albumin 2.2 L Globulin 2.2 Albumin/Globulin Ratio 1.0 Vancomycin Trough Blood Type A POSITIVE Antibody Screen NEGATIVE Crossmatch See Detail 11/07/18 11/07/18 16:45 20:00 WBC 11.4 H RBC 2.44 L Hgb 7.3 L* Hct 21.8 L MCV 89.4 MCH 30.0 MCHC Differential 33.5 RDW 12.9 Plt Count 376 MPV 7.0 Add Manual Diff Neutrophils % 80.7 H Band Neutrophils % Lymphocytes % 11.8 L Monocytes % 6.7 Eosinophils % 0.4 Basophils % 0.4 Neutrophils (Manual) Lymphocytes Monocytes Sodium Potassium Chloride Carbon Dioxide Anion Gap BUN Creatinine Est GFR ( Amer) Est GFR (Non-Af Amer) BUN/Creatinine Ratio Glucose Calcium Total Bilirubin AST ALT Alkaline Phosphatase Total Protein Albumin Globulin Albumin/Globulin Ratio Vancomycin Trough 13.7 H Blood Type Antibody Screen Crossmatch Microbiology 11/06/18 12:21 Nares - Final 11/06/18 11:54 Blood - Preliminary NO GROWTH AFTER 24 HOURS Diagnoses ANEMIA, UNSPECIFIED (11/06/18) HYPOKALEMIA (11/06/18) ESSENTIAL (PRIMARY) HYPERTENSION (11/06/18) PNEUMONIA, UNSPECIFIED ORGANISM (11/06/18) PEPTIC ULC, SITE UNSP, UNSP AC OR CHR, W/O HEMOR OR PERF (11/06/18) AGE-RELATED OSTEOPOROSIS W/O CURRENT PATHOLOGICAL FRACTURE (11/06/18) ACUTE KIDNEY FAILURE, UNSPECIFIED (11/06/18) WEAKNESS (11/06/18) SEVERE SEPSIS WITH SEPTIC SHOCK (11/06/18) Current Medications Acetaminophen (Tylenol Extra Strength) 500 mg PO Q6H PRN PRN Reason: Pain or Fever >101 Stop: 01/05/19 12:14 Albuterol/Ipratropium (Duoneb Neb) 3 ml HHN Q2H PRN PRN Reason: Shortness of Breath or Wheeze Stop: 01/05/19 12:14 Albuterol/Ipratropium (Duoneb Neb) 3 ml HHN Q6HRT [facility]ANE Stop: 01/05/19 12:59 Last Admin: 11/08/18 00:02 Dose: Not Given Diltiazem HCl (Cardizem) 20 mg IVP Q4H PRN PRN Reason: Tachycardia HR Above 120 Stop: 01/06/19 17:17 Last Admin: 11/07/18 17:35 Dose: 20 mg Haloperidol (Haldol) 1 mg PO BID PRN; Protocol PRN Reason: Agitation Stop: 01/06/19 16:59 Piperacillin Sod/Tazobactam (Sod 3.375 gm/ Sodium Chloride) 50 mls @ 100 mls/ hr IV Q6HR ZANE Stop: 01/05/19 17:59 Last Infusion: 11/08/18 01:15 Dose: Infused Norepinephrine Bitartrate 4 mg (/ Dextrose) 254 mls @ 30.48 mls/hr IV TITR PRN ; Protocol PRN Reason: BP MAINTENANCE (PER PROTOCOL) Stop: 01/05/19 15:59 Last Admin: 11/08/18 02:50 Dose: 25 mcg/min, 95.25 mls/hr Vancomycin HCl 1.25 gm/ Sodium (Chloride) 250 mls @ 165 mls/hr IV Q12H [facility]ANE Stop: 01/06/19 08:59 Last Infusion: 11/07/18 22:05 Dose: Infused Potassium Chloride/Sodium Chloride (0.9% Ns W/20 Meq Kcl) 1,000 mls @ 100 mls/ hr IV .Q10H [facility]ANE Stop: 01/06/19 02:14 Last Admin: 11/08/18 01:26 Dose: 100 mls/hr Phenylephrine HCl 10 mg/ (Sodium Chloride) 250 mls @ 75 mls/hr IV TITR ZANE; Protocol Stop: 01/07/19 01:14 Lorazepam (Ativan) 1 mg IM Q4HR PRN; Protocol PRN Reason: agitation Stop: 01/06/19 07:59 Miscellaneous (Vancomycin Iv Per Pharmacy) 1 ea MC PRN PRN PRN Reason: PROTOCOL Stop: 01/05/19 14:52 Pantoprazole Sodium (Protonix) 40 mg IVP DAILY ZANE Stop: 01/06/19 08:59 Last Admin: 11/07/18 09:05 Dose: 40 mg Potassium Chloride (Klor-Con) 20 meq PO DAILY ZANE Stop: 01/06/19 08:59 Last Admin: 11/07/18 08:02 Dose: Not Given Infectious Disease Objective - Results Result Diagrams: 11/07/18 16:45 11/07/18 04:05 Recent Labs: Laboratory Last Values WBC 11.4 Th/cmm (4.8-10.8) H 11/07/18 16:45 RBC 2.44 Mil/cmm (3.80-5.80) L 11/07/18 16:45 Hgb 7.3 gm/dL (12-16) L* 11/07/18 16:45 Hct 21.8 % (41.0-60) L 11/07/18 16:45 MCV 89.4 fl (80-99) 11/07/18 16:45 MCH 30.0 pg (27.0-31.0) 11/07/18 16:45 MCHC Differential 33.5 pg (28.0-36.0) 11/07/18 16:45 RDW 12.9 % (11.5-20.0) 11/07/18 16:45 Plt Count 376 Th/cmm (150-400) 11/07/18 16:45 MPV 7.0 fl 11/07/18 16:45 Add Manual Diff YES 11/07/18 04:05 Neutrophils % 80.7 % (40.0-80.0) H 11/07/18 16:45 Band Neutrophils % 1 % (0-10) 11/07/18 04:05 Lymphocytes % 11.8 % (20.0-50.0) L 11/07/18 16:45 Monocytes % 6.7 % (2.0-10.0) 11/07/18 16:45 Eosinophils % 0.4 % (0.0-5.0) 11/07/18 16:45 Basophils % 0.4 % (0.0-2.0) 11/07/18 16:45 Neutrophils (Manual) 84 % (40-80) H 11/07/18 04:05 Lymphocytes 10 % (20-50) L 11/07/18 04:05 Monocytes 5 % (2-10) 11/07/18 04:05 Eosinophils 0 % (0-5) 11/06/18 11:20 Basophils 1 % (0-3) 11/06/18 11:20 Smear Path Review 11/06/18 11:54 PT 10.9 SECONDS (9.5-11.5) 11/06/18 11:20 INR 1.05 (0.5-1.4) 11/06/18 11:20 PTT (Actin FS) 26.5 SECONDS (26.0-38.0) 11/06/18 11:20 Sodium 139 mEq/L (136-145) 11/07/18 04:05 Potassium 3.7 mEq/L (3.5-5.1) 11/07/18 04:05 Chloride 110 mEq/L (98-107) H 11/07/18 04:05 Carbon Dioxide 20.7 mEq/L (21.0-31.0) L 11/07/18 04:05 Anion Gap 12.0 (7.0-16.0) 11/07/18 04:05 BUN 48 mg/dL (7-25) H 11/07/18 04:05 Creatinine 0.7 mg/dL (0.7-1.3) 11/07/18 04:05 Est GFR ( Amer) > 60.0 ml/min (>90) 11/07/18 04:05 Est GFR (Non-Af Amer) > 60.0 ml/min 11/07/18 04:05 BUN/Creatinine Ratio 68.6 11/07/18 04:05 Glucose 147 mg/dL (70-105) H 11/07/18 04:05 Whole Bld Lactic Acid 1.34 mmol/L (0.60-1.99) 11/06/18 11:20 Calcium 7.5 mg/dL (8.6-10.3) L 11/07/18 04:05 Phosphorus 4.1 mg/dL (2.5-5.0) 11/06/18 11:20 Magnesium 2.2 mg/dL (1.9-2.7) 11/06/18 11:20 Total Bilirubin 0.6 mg/dL (0.3-1.0) 11/07/18 04:05 AST 15 U/L (13-39) 11/07/18 04:05 ALT 17 U/L (7-52) 11/07/18 04:05 Alkaline Phosphatase 61 U/L (34-104) 11/07/18 04:05 Troponin I 0.01 ng/mL (0.01-0.05) 11/06/18 11:20 Total Protein 4.4 gm/dL (6.0-8.3) L 11/07/18 04:05 Albumin 2.2 gm/dL (4.2-5.5) L 11/07/18 04:05 Globulin 2.2 gm/dL 11/07/18 04:05 Albumin/Globulin Ratio 1.0 (1.0-1.8) 11/07/18 04:05 TSH 0.98 uIU/ml (0.34-5.60) 11/06/18 11:20 Urine Source CLEAN C 11/06/18 12:00 Urine Color YELLOW 11/06/18 12:00 Urine Clarity HAZY (CLEAR) 11/06/18 12:00 Urine pH 5.5 (4.6 - 8.0) 11/06/18 12:00 Ur Specific [place] 1.020 (1.005-1.030) 11/06/18 12:00 Urine Protein TRACE mg/dL (NEGATIVE) 11/06/18 12:00 Urine Glucose (UA) NEGATIVE mg/dL (NEGATIVE) 11/06/18 12:00 Urine Ketones TRACE mg/dL (NEGATIVE) 11/06/18 12:00 Urine Blood NEGATIVE (NEGATIVE) 11/06/18 12:00 Urine Nitrate NEGATIVE (NEGATIVE) 11/06/18 12:00 Urine Bilirubin SMALL (NEGATIVE) H 11/06/18 12:00 Urine Urobilinogen 1.0 E.U./dL (0.2 - 1.0) 11/06/18 12:00 Ur Leukocyte Esterase NEGATIVE (NEGATIVE) 11/06/18 12:00 Urine RBC 0-2 /hpf (0-5) H 11/06/18 12:00 Urine WBC 2-5 /hpf (0-5) 11/06/18 12:00 Ur Epithelial Cells OCCASIONAL /lpf (FEW) 11/06/18 12:00 Amorphous Sediment MODERATE URATES (NONE SEEN) 11/06/18 12:00 Urine Bacteria NONE SEEN /hpf (NONE SEEN) 11/06/18 12:00 Vancomycin Trough 13.7 ug/mL (5-10) H 11/07/18 20:00 Urine Opiates Screen NEGATIVE (NEGATIVE) 11/06/18 12:00 Urine Methadone Screen NEGATIVE (NEGATIVE) 11/06/18 12:00 Ur Barbiturates Screen NEGATIVE (NEGATIVE) 11/06/18 12:00 Ur Tricyclics Screen NEGATIVE (NEGATIVE) 11/06/18 12:00 Ur Phencyclidine Scrn NEGATIVE (NEGATIVE) 11/06/18 12:00 Amphetamines Screen NEGATIVE (NEGATIVE) 11/06/18 12:00 U Methamphetamines Scrn NEGATIVE (NEGATIVE) 11/06/18 12:00 U Benzodiazepines Scrn NEGATIVE (NEGATIVE) 11/06/18 12:00 U Cocaine Metab Screen NEGATIVE (NEGATIVE) 11/06/18 12:00 U Cannabinoids Screen NEGATIVE (NEGATIVE) 11/06/18 12:00 Blood Type A POSITIVE 11/06/18 11:54 Antibody Screen NEGATIVE 11/06/18 11:54 Crossmatch See Detail 11/06/18 11:54 - Physical Exam Vitals and I&O: Vital Signs Temp 98.4 F 11/08/18 02:00 Pulse 84 11/08/18 02:30 Resp 13 11/08/18 02:00 BP 94/54 11/08/18 02:30 Pulse Ox 100 11/08/18 02:00 Intake & Output 11/07/18 11/07/18 11/08/18 06:59 18:59 06:59 Intake Total 3465.274 000.224 7353.315 Output Total 220 300 Balance 3245.274 091.610 8995.315 Weight (lbs) 59.375 kg 58.967 kg Intake: Intake, IV Amount 2715.274 785.099 5889.315 0.9% NS w/20 mEq KCL 1, 1000 1000 000 ml @ 100 mls/hr IV . Q10H [facility] Rx#:[id number] 0.9% NS w/20 mEq KCL 1, 203 000 ml @ 70 mls/hr IV . [id number] [facility] Rx#:[id number] Norepinephrine 4 mg In 483.212 146.685 107.315 Dextrose 5% 250 ml @ 8 MCG/MIN 30.48 mls/hr IV TITR PRN Rx#:[id number] Piperacillin Sodium/ 150 50 100 Tazobact 3.375 gm In Sodium Chloride 0.9% 50 ml @ 100 mls/hr IV Q6HR [facility] Rx#:[id number] Vancomycin HCl 1.25 gm In 250 Sodium Chloride 0.9% 250 ml @ 165 mls/hr IV ONCE ONE Rx#:[id number] Vancomycin HCl 1.25 gm In 250 250 Sodium Chloride 0.9% 250 ml @ 165 mls/hr IV Q12H [facility] Rx#:[id number] Oral 250 300 Blood Product 500 Output: Urine 220 300 Other: # Voids 3 # Bowel Movements 3 2 Stool Characteristics Soft Soft Soft Hard Hard Black Black Brown Weight Source Bedscale Bedscale Active Medications: Current Medications Acetaminophen (Tylenol Extra Strength) 500 mg PO Q6H PRN PRN Reason: Pain or Fever >101 Stop: 01/05/19 12:14 Albuterol/Ipratropium (Duoneb Neb) 3 ml HHN Q2H PRN PRN Reason: Shortness of Breath or Wheeze Stop: 01/05/19 12:14 Albuterol/Ipratropium (Duoneb Neb) 3 ml HHN Q6HRT [facility] Stop: 01/05/19 12:59 Last Admin: 11/08/18 00:02 Dose: Not Given Diltiazem HCl (Cardizem) 20 mg IVP Q4H PRN PRN Reason: Tachycardia HR Above 120 Stop: 01/06/19 17:17 Last Admin: 11/07/18 17:35 Dose: 20 mg Haloperidol (Haldol) 1 mg PO BID PRN; Protocol PRN Reason: Agitation Stop: 01/06/19 16:59 Piperacillin Sod/Tazobactam (Sod 3.375 gm/ Sodium Chloride) 50 mls @ 100 mls/ hr IV Q6HR [facility] Stop: 01/05/19 17:59 Last Infusion: 11/08/18 01:15 Dose: Infused Norepinephrine Bitartrate 4 mg (/ Dextrose) 254 mls @ 30.48 mls/hr IV TITR PRN ; Protocol PRN Reason: BP MAINTENANCE (PER PROTOCOL) Stop: 01/05/19 15:59 Last Admin: 11/07/18 20:33 Dose: 3 mcg/min, 11.43 mls/hr Vancomycin HCl 1.25 gm/ Sodium (Chloride) 250 mls @ 165 mls/hr IV Q12H [facility] Stop: 01/06/19 08:59 Last Infusion: 11/07/18 22:05 Dose: Infused Potassium Chloride/Sodium Chloride (0.9% Ns W/20 Meq Kcl) 1,000 mls @ 100 mls/ hr IV .Q10H [facility] Stop: 01/06/19 02:14 Last Admin: 11/08/18 01:26 Dose: 100 mls/hr Phenylephrine HCl 10 mg/ (Sodium Chloride) 250 mls @ 75 mls/hr IV TITR ZANE; Protocol Stop: 01/07/19 01:14 Lorazepam (Ativan) 1 mg IM Q4HR PRN; Protocol PRN Reason: agitation Stop: 01/06/19 07:59 Miscellaneous (Vancomycin Iv Per Pharmacy) 1 ea MC PRN PRN PRN Reason: PROTOCOL Stop: 01/05/19 14:52 Pantoprazole Sodium (Protonix) 40 mg IVP DAILY ZANE Stop: 01/06/19 08:59 Last Admin: 11/07/18 09:05 Dose: 40 mg Potassium Chloride (Klor-Con) 20 meq PO DAILY ZANE Stop: 01/06/19 08:59 Last Admin: 11/07/18 08:02 Dose: Not Given Infectious Disease Assmt/Plan - Problem List Patient Problems: All Active Problems POOR ORAL INTAKE (Acute) Nutritional Asmnt/Malnutr-PDOC - Dietary Evaluation Malnutrition Findings (Please click <Entered> for more info): Nutritional Asmnt/Malnutrition Start: 11/07/18 13: 23 Text: Status: Complete Freq: Protocol: Document 11/07/18 13:24 [email or web address] (Rec: 11/07/18 13:33 [email or web address]) Nutritional Asmnt/Malnutrition Patient General Information Nutritional Screening High Risk Diagnosis sepsis, anemia, hypotension Pertinent Medical Hx/Surgical Hx peptic ulcer disease, gastritis, arthritis, osteoporosis, HTN, BPH, schizophrenia Subjective Information Pt was seen in bed at time of visit, with 1:1 sitter. Pt did not eat breakfast and only requests coffee. PO intake is 0-10% per EMR. Pt apeared some agitated, did not provide any reason of poor PO intake. Current Diet Order/ Nutrition Support regular Pertinent Medications vancomycin, levophed, protonix , KCl/NaCl 0.9%ns, piperacillin Pertinent Labs 11/07 Cl 110, BUN 48, glucose 147, ca 7.5, alb 2.2 11/06 Na 133, K 3.3, BUN 73, glucose 121, ca 8.5, alb 2.7 Nutritional Hx/Data Height 1.63 m Height (Calculated Centimeters) 162.6 Current Weight (lbs) 58.967 kg Weight (Calculated Kilograms) 59.0 Weight (Calculated Grams) 57920.0 [place] Body Weight 130 Body Mass Index (BMI) 22.3 Weight Status Approriate GI Symptoms GI Symptoms None Last BM 11/06 x3 Difficult in: None Food Allergies No Skin Integrity/Comment: sacral wound, mike 18 Current %PO Negligible < 25% Estimated Nutritional Goals BEE in Kcals: Using Current wt Calories/Kcals/Kg 25-30 Kcals Calculated 7119-4266 Protein: Using Current wt Protein g/k-1.2 Protein Calculated 59-70 Fluid: ml 1509-0396 (1ml/kcal) Nutritional Problem 2. Problem Problem altered nutrition related labs Etiology fluid/electrolyte imbalance Signs/Symptoms: Cl 110, BUN 48-73, Na 133, K 3 .3 1. Problem Problem inadequate energy/protein intake Etiology possible poor appetite Signs/Symptoms: PO intake 0-10% Malnutrition Alert Is there a minimum of two criteria No selected? Query Text:Check all the applicable criteria. A minimum of two criteria are recommended for diagnosis of either severe or non-severe malnutrition. Malnutrition Related to Morbid Obesity Malnutrition related to morbid obesity No Intervention/Recommendation Comments 1. Continue with regular diet as ordered. 2. Add ensure TID for extra kcal and protein 3. will consider provide Michael BID after wound assessment 4. MD to replace electrolytes 5. Monitor PO intake, wt, labs and skin integrity 6. F/U as high risk in 2-3 days Expected Outcomes/Goals Expected Outcomes/Goals 1. PO intake to meet at least 75% of nutritional needs. 2. Wt stability, skin integrity to improve, labs to approach WNL. Reviewed by Sherice Stearns RD
--- NOTE | 2018-11-08 04:27 | Consultation ---
DATE OF CONSULTATION: 11/06/2018 PRIMARY PHYSICIAN: Dr. Uribe. HISTORY OF PRESENT ILLNESS: This is a 68-year-old male who was brought to the Emergency with complaint of failure to thrive, weakness, dizziness. ____ the patient was brought to Emergency Room where the patient evaluated and was found to have low blood pressures started on Levophed for septic shock, admitted to ICU. Stat Infectious consultation was called. Discussed with the staff, antibiotic adjusted. The patient examined as soon as possible. The patient has history of psychosis, unable to provide meaningful history. Old chart reviewed and discussed with Dr. Uribe. PAST MEDICAL HISTORY: Benign prostatic hypertrophy, essential hypertension, and osteoporosis. SOCIAL HISTORY: Nonsmoker. REVIEW OF SYSTEMS: A 14-point review of system negative except above. PHYSICAL EXAMINATION: GENERAL: Elderly male, critically ill with the following vital signs; VITAL SIGNS: Temperature 99.2, pulse 68, respiration 12, blood pressure 120/55. HEENT: Mild pallor. No icterus or plaque. NECK: Supple. LUNGS: Breath sounds bilateral. CARDIOVASCULAR: S1. ABDOMEN: Soft, bowel sounds. NODES: No cervical lymph nodes. LABORATORY DATA: UA shows 0-2 rbc's, small bilirubin. White count 17,000, hemoglobin 7.5 grams, platelets 462. Chemistry shows creatinine of 1.2, albumin 2.7. Blood culture negative so far. UA: 0-2 RBC, bilirubin positive. Chest x-ray reviewed and negative for infiltrates. DIAGNOSES: Septic shock, UTI. PLAN: The patient was started on vancomycin and Zosyn. Wait for the culture result. Modify antibiotic accordingly. Levophed titrated to 5 mcg to keep systolic above 90. History of hypertension, hold antihypertensives if blood pressure is low. Rest of the care as ordered in CPOE. Repeat labs tomorrow, ultrasound of abdomen, KUB. Also, GI consult for possible colitis. Thank you, Dr. Uribe for this consultation. JOB# [id number]
[2018-11-08 07:02] LABS: INR 1.18 (0.5-1.4); PROTHROMBIN TIME (TEST) 12.2 SECONDS (9.5-11.5)
[2018-11-08 07:06] LABS: ANION GAP 10.9 (7.0-16.0); BUN - UREA NITROGEN 35 mg/dL (7-25); CALCIUM SERUM 7.1 mg/dL (8.6-10.3); CHLORIDE 114 mEq/L (98-107); CREATININE - SERUM 0.7 mg/dL (0.7-1.3); GFR AFRICAN-AMERICAN > 60.0 ml/min (>90); GFR NON AFRICAN-AMERICAN > 60.0 ml/min; GLUCOSE 179 mg/dL (70-105); POTASSIUM SERUM 3.9 mEq/L (3.5-5.1); SODIUM SERUM 141 mEq/L (136-145)
[2018-11-08 07:24] LABS: HEMATOCRIT 19.8 % (41.0-60); HEMOGLOBIN 6.9 gm/dL (12-16); MEAN CELL VOLUME 91.9 fl (80-99); MEAN CORPUSCULAR HGB CONC 34.8 pg (28.0-36.0); MEAN PLATELET VOLUME 7.5 fl; PLATELET COUNT 388 Th/cmm (150-400); RED BLOOD COUNT 2.16 Mil/cmm (3.80-5.80); RED CELL DISTRIBUTION WIDTH 12.8 % (11.5-20.0); WHITE BLOOD COUNT 22.9 Th/cmm (4.8-10.8)
[2018-11-08 07:49] LABS: BAND NEUTROPHILE 0 % (0-10); BASOPHIL 0 % (0-3); EOSINOPHIL 0 % (0-5); HYPOCHROMIA 1+; LYMPHOCYTE 9 % (20-50); MONOCYTE 4 % (2-10); NEUTROPHILS 87 % (40-80)
[2018-11-08] MEDS: Potassium Chloride 20 mEq ER Tab PO SCH (09:29)
[2018-11-08] MEDS ORDERED: Probiotic Screen MC PRN (12:00)
[2018-11-08] MEDS ORDERED: Lidocaine 2% Gel 5 mL TP ONE (13:10)
[2018-11-08] MEDS ORDERED: Propofol 10 mg/mL 20mL Vial **SURGERY USE ONLY IV ONE (13:10)
--- NOTE | 2018-11-08 13:22 | General Progress Note ---
Subjective - Review of Systems Service Date: 11/08/18 Subjective: Patient awake alert but complaining of abdominal pain still patient has burgundy stools Objective - Results Result Diagrams: 11/08/18 06:20 11/08/18 06:20 Recent Labs: Laboratory Last Values WBC 22.9 Th/cmm (4.8-10.8) H* D 11/08/18 06:20 RBC 2.16 Mil/cmm (3.80-5.80) L 11/08/18 06:20 Hgb 6.9 gm/dL (12-16) L* 11/08/18 06:20 Hct 19.8 % (41.0-60) L* 11/08/18 06:20 MCV 91.9 fl (80-99) 11/08/18 06:20 MCH 32.0 pg (27.0-31.0) H 11/08/18 06:20 MCHC Differential 34.8 pg (28.0-36.0) 11/08/18 06:20 RDW 12.8 % (11.5-20.0) 11/08/18 06:20 Plt Count 388 Th/cmm (150-400) 11/08/18 06:20 MPV 7.5 fl 11/08/18 06:20 Add Manual Diff YES 11/08/18 06:20 Neutrophils % 80.7 % (40.0-80.0) H 11/07/18 16:45 Band Neutrophils % 0 % (0-10) 11/08/18 06:20 Lymphocytes % 11.8 % (20.0-50.0) L 11/07/18 16:45 Monocytes % 6.7 % (2.0-10.0) 11/07/18 16:45 Eosinophils % 0.4 % (0.0-5.0) 11/07/18 16:45 Basophils % 0.4 % (0.0-2.0) 11/07/18 16:45 Neutrophils (Manual) 87 % (40-80) H 11/08/18 06:20 Lymphocytes 9 % (20-50) L 11/08/18 06:20 Monocytes 4 % (2-10) 11/08/18 06:20 Eosinophils 0 % (0-5) 11/08/18 06:20 Basophils 0 % (0-3) 11/08/18 06:20 Hypochromia 1+ 11/08/18 06:20 Smear Path Review 11/06/18 11:54 PT 12.2 SECONDS (9.5-11.5) H 11/08/18 06:20 INR 1.18 (0.5-1.4) 11/08/18 06:20 PTT (Actin FS) 26.5 SECONDS (26.0-38.0) 11/06/18 11:20 Sodium 141 mEq/L (136-145) 11/08/18 06:20 Potassium 3.9 mEq/L (3.5-5.1) 11/08/18 06:20 Chloride 114 mEq/L (98-107) H 11/08/18 06:20 Carbon Dioxide 20.0 mEq/L (21.0-31.0) L 11/08/18 06:20 Anion Gap 10.9 (7.0-16.0) 11/08/18 06:20 BUN 35 mg/dL (7-25) H 11/08/18 06:20 Creatinine 0.7 mg/dL (0.7-1.3) 11/08/18 06:20 Est GFR ( Amer) > 60.0 ml/min (>90) 11/08/18 06:20 Est GFR (Non-Af Amer) > 60.0 ml/min 11/08/18 06:20 BUN/Creatinine Ratio 50.0 11/08/18 06:20 Glucose 179 mg/dL (70-105) H 11/08/18 06:20 Whole Bld Lactic Acid 1.34 mmol/L (0.60-1.99) 11/06/18 11:20 Calcium 7.1 mg/dL (8.6-10.3) L 11/08/18 06:20 Phosphorus 4.1 mg/dL (2.5-5.0) 11/06/18 11:20 Magnesium 2.2 mg/dL (1.9-2.7) 11/06/18 11:20 Total Bilirubin 0.6 mg/dL (0.3-1.0) 11/07/18 04:05 AST 15 U/L (13-39) 11/07/18 04:05 ALT 17 U/L (7-52) 11/07/18 04:05 Alkaline Phosphatase 61 U/L (34-104) 11/07/18 04:05 Troponin I 0.01 ng/mL (0.01-0.05) 11/06/18 11:20 Total Protein 4.4 gm/dL (6.0-8.3) L 11/07/18 04:05 Albumin 2.2 gm/dL (4.2-5.5) L 11/07/18 04:05 Globulin 2.2 gm/dL 11/07/18 04:05 Albumin/Globulin Ratio 1.0 (1.0-1.8) 11/07/18 04:05 TSH 0.98 uIU/ml (0.34-5.60) 11/06/18 11:20 Urine Source CLEAN C 11/06/18 12:00 Urine Color YELLOW 11/06/18 12:00 Urine Clarity HAZY (CLEAR) 11/06/18 12:00 Urine pH 5.5 (4.6 - 8.0) 11/06/18 12:00 Ur Specific [place] 1.020 (1.005-1.030) 11/06/18 12:00 Urine Protein TRACE mg/dL (NEGATIVE) 11/06/18 12:00 Urine Glucose (UA) NEGATIVE mg/dL (NEGATIVE) 11/06/18 12:00 Urine Ketones TRACE mg/dL (NEGATIVE) 11/06/18 12:00 Urine Blood NEGATIVE (NEGATIVE) 11/06/18 12:00 Urine Nitrate NEGATIVE (NEGATIVE) 11/06/18 12:00 Urine Bilirubin SMALL (NEGATIVE) H 11/06/18 12:00 Urine Urobilinogen 1.0 E.U./dL (0.2 - 1.0) 11/06/18 12:00 Ur Leukocyte Esterase NEGATIVE (NEGATIVE) 11/06/18 12:00 Urine RBC 0-2 /hpf (0-5) H 11/06/18 12:00 Urine WBC 2-5 /hpf (0-5) 11/06/18 12:00 Ur Epithelial Cells OCCASIONAL /lpf (FEW) 11/06/18 12:00 Amorphous Sediment MODERATE URATES (NONE SEEN) 11/06/18 12:00 Urine Bacteria NONE SEEN /hpf (NONE SEEN) 11/06/18 12:00 Vancomycin Trough 13.7 ug/mL (5-10) H 11/07/18 20:00 Urine Opiates Screen NEGATIVE (NEGATIVE) 11/06/18 12:00 Urine Methadone Screen NEGATIVE (NEGATIVE) 11/06/18 12:00 Ur Barbiturates Screen NEGATIVE (NEGATIVE) 11/06/18 12:00 Ur Tricyclics Screen NEGATIVE (NEGATIVE) 11/06/18 12:00 Ur Phencyclidine Scrn NEGATIVE (NEGATIVE) 11/06/18 12:00 Amphetamines Screen NEGATIVE (NEGATIVE) 11/06/18 12:00 U Methamphetamines Scrn NEGATIVE (NEGATIVE) 11/06/18 12:00 U Benzodiazepines Scrn NEGATIVE (NEGATIVE) 11/06/18 12:00 U Cocaine Metab Screen NEGATIVE (NEGATIVE) 11/06/18 12:00 U Cannabinoids Screen NEGATIVE (NEGATIVE) 11/06/18 12:00 Blood Type A POSITIVE 11/06/18 11:54 Antibody Screen NEGATIVE 11/06/18 11:54 Crossmatch See Detail 11/06/18 11:54 - Physical Exam Vitals and I&O: Vital Signs Temp 98.5 F 11/08/18 12:00 Pulse 82 11/08/18 12:15 Resp 15 11/08/18 12:00 BP 143/50 11/08/18 12:15 Pulse Ox 100 11/08/18 12:00 Intake & Output 11/07/18 11/08/18 11/08/18 18:59 06:59 18:59 Intake Total 816.454 5808.133 1199.25 Output Total 303 Balance 554.023 7480.133 1199.25 Weight (lbs) 59.137 kg Intake: Intake, IV Amount 860.482 8212.133 1199.25 0.9% NS w/20 mEq KCL 1, 1000 000 ml @ 100 mls/hr IV . Q10H ZANE Rx#:[id number] Norepinephrine 4 mg In 146.685 433.133 508.00 Dextrose 5% 250 ml @ 8 MCG/MIN 30.48 mls/hr IV TITR PRN Rx#:[id number] Phenylephrine HCl 10 mg 250 441.25 In Sodium Chloride 0.9% 250 ml @ 50 MCG/MIN 75 mls/hr IV TITR ZANE Rx#: [id number] Piperacillin Sodium/ 50 150 Tazobact 3.375 gm In Sodium Chloride 0.9% 50 ml @ 100 mls/hr IV Q6HR [facility] Rx#:[id number] Vancomycin HCl 1.25 gm In 250 250 250 Sodium Chloride 0.9% 250 ml @ 165 mls/hr IV Q12H [facility] Rx#:[id number] Oral 300 Blood Product 250 Output: Urine 300 Urine/Stool Mix 3 Other: # Voids 4 # Bowel Movements 2 Stool Characteristics Soft Soft Soft Hard Black Black Brown Weight Source Bedscale Active Medications: Current Medications Acetaminophen (Tylenol Extra Strength) 500 mg PO Q6H PRN PRN Reason: Pain or Fever >101 Stop: 01/05/19 12:14 Albuterol/Ipratropium (Duoneb Neb) 3 ml HHN Q2H PRN PRN Reason: Shortness of Breath or Wheeze Stop: 01/05/19 12:14 Albuterol/Ipratropium (Duoneb Neb) 3 ml HHN Q6HRT [facility] Stop: 01/05/19 12:59 Last Admin: 11/08/18 07:19 Dose: 3 ml Diltiazem HCl (Cardizem) 20 mg IVP Q4H PRN PRN Reason: Tachycardia HR Above 120 Stop: 01/06/19 17:17 Last Admin: 11/07/18 17:35 Dose: 20 mg Haloperidol (Haldol) 1 mg PO BID PRN; Protocol PRN Reason: Agitation Stop: 01/06/19 16:59 Piperacillin Sod/Tazobactam (Sod 3.375 gm/ Sodium Chloride) 50 mls @ 100 mls/ hr IV Q6HR [facility] Stop: 01/05/19 17:59 Last Admin: 11/08/18 13:10 Dose: 100 mls/hr Norepinephrine Bitartrate 4 mg (/ Dextrose) 254 mls @ 30.48 mls/hr IV TITR PRN ; Protocol PRN Reason: BP MAINTENANCE (PER PROTOCOL) Stop: 01/05/19 15:59 Last Admin: 11/08/18 11:28 Dose: 16 mcg/min, 60.96 mls/hr Vancomycin HCl 1.25 gm/ Sodium (Chloride) 250 mls @ 165 mls/hr IV Q12H [facility] Stop: 01/06/19 08:59 Last Infusion: 11/08/18 11:10 Dose: Infused Potassium Chloride/Sodium Chloride (0.9% Ns W/20 Meq Kcl) 1,000 mls @ 100 mls/ hr IV .Q10H ZANE Stop: 01/06/19 02:14 Last Admin: 11/08/18 01:26 Dose: 100 mls/hr Phenylephrine HCl 10 mg/ (Sodium Chloride) 250 mls @ 75 mls/hr IV TITR ZANE; Protocol Stop: 01/07/19 01:14 Last Admin: 11/08/18 11:30 Dose: 20 mcg/min, 30 mls/hr Lactobacillus Rhamnosus (Culturelle 15b) 1 each PO DAILY ZANE Stop: 01/08/19 08:59 Lorazepam (Ativan) 1 mg IM Q4HR PRN; Protocol PRN Reason: agitation Stop: 01/06/19 07:59 Miscellaneous (Vancomycin Iv Per Pharmacy) 1 ea PRN PRN PRN Reason: PROTOCOL Stop: 01/05/19 14:52 Miscellaneous (Probiotic Screen) 1 ea PRN PRN PRN Reason: PROTOCOL Stop: 01/07/19 11:59 Pantoprazole Sodium (Protonix) 40 mg IVP DAILY ZANE Stop: 01/06/19 08:59 Last Admin: 11/08/18 08:01 Dose: 40 mg Potassium Chloride (Klor-Con) 20 meq PO DAILY ZANE Stop: 01/06/19 08:59 Last Admin: 11/08/18 09:29 Dose: Not Given General: Alert HEENT: Other (normal) Neck: Supple, JVD, +2 carotid pulse wo bruit (flat) Cardiovascular: Regular rate, Normal S1, Normal S2, Systolic murmurs Lungs: Clear to auscultation, Normal air movement Abdomen: Bowel sounds, Soft, Other (no organomegaly) Extremities: Pulses (normal) Neurological: Normal gait Skin: Significant lesion Psych/Mental Status: Other (psychosis) Assessment/Plan - Problem List Patient Problems: All Active Problems POOR ORAL INTAKE (Acute) - Assessment Assessment: Septic shock Hypotension Iron deficiency anemia Peptic ulcer Hypokalemia 6 daily stage II Psychotic COPD Pneumonia GI bleeding - Plan Plan: Continue patient on Levophed IV antibiotics and GI evaluation for anemia get an echocardiogram Patient to have EGD Nutritional Asmnt/Malnutr-PDOC - Dietary Evaluation Malnutrition Findings (Please click <Entered> for more info): Nutritional Asmnt/Malnutrition Start: 11/07/18 13: 23 Text: Status: Complete Freq: Protocol: Document 11/07/18 13:24 [email or web address] (Rec: 11/07/18 13:33 [email or web address]) Nutritional Asmnt/Malnutrition Patient General Information Nutritional Screening High Risk Diagnosis sepsis, anemia, hypotension Pertinent Medical Hx/Surgical Hx peptic ulcer disease, gastritis, arthritis, osteoporosis, HTN, BPH, schizophrenia Subjective Information Pt was seen in bed at time of visit, with 1:1 sitter. Pt did not eat breakfast and only requests coffee. PO intake is 0-10% per EMR. Pt apeared some agitated, did not provide any reason of poor PO intake. Current Diet Order/ Nutrition Support regular Pertinent Medications vancomycin, levophed, protonix , KCl/NaCl 0.9%ns, piperacillin Pertinent Labs 11/07 Cl 110, BUN 48, glucose 147, ca 7.5, alb 2.2 11/06 Na 133, K 3.3, BUN 73, glucose 121, ca 8.5, alb 2.7 Nutritional Hx/Data Height 1.63 m Height (Calculated Centimeters) 162.6 Current Weight (lbs) 58.967 kg Weight (Calculated Kilograms) 59.0 Weight (Calculated Grams) 89439.0 [place] Body Weight 130 Body Mass Index (BMI) 22.3 Weight Status Approriate GI Symptoms GI Symptoms None Last BM 11/06 x3 Difficult in: None Food Allergies No Skin Integrity/Comment: sacral wound, mike 18 Current %PO Negligible < 25% Estimated Nutritional Goals BEE in Kcals: Using Current wt Calories/Kcals/Kg 25-30 Kcals Calculated 1576-9561 Protein: Using Current wt Protein g/k-1.2 Protein Calculated 59-70 Fluid: ml 2230-4622 (1ml/kcal) Nutritional Problem 2. Problem Problem altered nutrition related labs Etiology fluid/electrolyte imbalance Signs/Symptoms: Cl 110, BUN 48-73, Na 133, K 3 .3 1. Problem Problem inadequate energy/protein intake Etiology possible poor appetite Signs/Symptoms: PO intake 0-10% Malnutrition Alert Is there a minimum of two criteria No selected? Query Text:Check all the applicable criteria. A minimum of two criteria are recommended for diagnosis of either severe or non-severe malnutrition. Malnutrition Related to Morbid Obesity Malnutrition related to morbid obesity No Intervention/Recommendation Comments 1. Continue with regular diet as ordered. 2. Add ensure TID for extra kcal and protein 3. will consider provide Michael BID after wound assessment 4. MD to replace electrolytes 5. Monitor PO intake, wt, labs and skin integrity 6. F/U as high risk in 2-3 days Expected Outcomes/Goals Expected Outcomes/Goals 1. PO intake to meet at least 75% of nutritional needs. 2. Wt stability, skin integrity to improve, labs to approach WNL. Reviewed by Sherice Stearns RD
[2018-11-08] MEDS: Pantoprazole 80 MG in Sodium Chloride 0.9% 100 ML IV SCH (15:59)
--- NOTE | 2018-11-08 17:03 | Consultation ---
DATE OF CONSULTATION: 11/07/2018 INPATIENT GASTROENTEROLOGY CONSULTATION REFERRING PHYSICIAN: Dr. John Uribe. REASON FOR CONSULTATION: Severe anemia. HISTORY OF PRESENT ILLNESS: This is a 68-year-old male who was brought to the hospital into the ICU out of concerns of sepsis. The patient was also found to be anemic and therefore asked to see the patient. The patient denies having any nausea, vomiting, diarrhea, constipation, melena or hematochezia. PAST MEDICAL HISTORY: Peptic ulcer disease, gastritis, arthritis, osteoporosis. PAST SURGICAL HISTORY: Hernia surgery. FAMILY HISTORY: Noncontributory. SOCIAL HISTORY: Denies tobacco, alcohol or IV drug usage. ALLERGIES: None. CURRENT MEDICATIONS: Tylenol, Haldol, Ativan, vancomycin, Protonix, Zosyn. REVIEW OF SYSTEMS: Ten point review of system was performed and pertinent positive was the sepsis. All other systems were negative. PHYSICAL EXAMINATION: VITAL SIGNS: Temperature 98.3, breathing 17, pulse of 79, blood pressure 106/44, satting 100%. GENERAL: In no apparent distress. EYES: Anicteric. Normal conjunctivae. HEENT: Normocephalic, atraumatic. Moist mucous membranes. NECK: Soft, supple. CHEST: Clear. No effort. CARDIOVASCULAR: Regular rate and rhythm. ABDOMEN: Soft, nontender, nondistended. SKIN: Warm, dry. EXTREMITIES: Reveal no cyanosis. PSYCHOLOGIC: Alert and oriented x 3. LABORATORY DATA: Show white count 15.7, hemoglobin 7.8, platelets of 401. INR 1.05. LFTs are within normal limits. KUB showed stool in the colon. Abdominal ultrasound showed sludge filled gallbladder, hepatomegaly. IMPRESSION: A 68-year-old male with severe anemia, no overt signs of GI bleeding. Stool OB can be checked. The patient has an elevated BUN to creatinine ratio, which could be indicative of an upper source. Endoscopy can be pursued. This was discussed with the patient, he is agreeable. He also has gallstones or sludge seen on ultrasound. HIDA scan could be also performed to rule out any signs of cholecystitis. PLAN: 1. EGD. 2. Follow H and H. 3. Continue Protonix. 4. Check a HIDA scan. Thank you for allowing me to participate. Please call me if any questions. JOB# [id number]
[2018-11-08 17:55] LABS: HEMATOCRIT 25.2 % (41.0-60); HEMOGLOBIN 8.5 gm/dL (12-16)
--- NOTE | 2018-11-08 19:10 | Operative Report ---
DATE OF SURGERY: 11/08/2018 INPATIENT GI PROCEDURE PROCEDURE: EGD with biopsy. REFERRING PHYSICIAN: Dr. John Uribe. REASON FOR PROCEDURE: Anemia and GI bleeding. CONSENT: Risks, benefits, alternatives, nature, indication, possible outcomes were discussed. Mentioned bleeding, infection, perforation, , disability, cardiopulmonary distress and arrest, missed lesion and cancers, need for surgery. The patient gave consent, but he has a conservator and it was also deemed medically emergency, therefore 2-physician consent was also obtained to do this is measure. MEDICATIONS: MAC provided by anesthesiologist. PREOPERATIVE DIAGNOSIS: Upper gastrointestinal bleed and anemia. POSTOPERATIVE DIAGNOSIS: Duodenal ulcer. DESCRIPTION OF PROCEDURE: The patient was placed on his left side. Upper endoscope was advanced from mouth into the bulb of the duodenum where there was a large duodenal ulcer with a large clot in it, likely source of recent bleeding. Does not appear to be actively bleeding at this time, but given the large ulcer likely involving the gastroduodenal artery. I believe to manage this type of bleeding is very limited and therefore, we did not disturb it. The scope was brought back to the stomach. Retroflexion view of fundus, cardia, lesser curvature, hiatal hernia. Scope was straightened. Biopsies were taken of the antrum. Scope was removed. COMPLICATIONS: None. FINDINGS: 1. GE junction at 40 cm with a normal appearing esophagus. 2. Normal appearing stomach, status post biopsy, rule out H. pylori. 3. Large duodenal bulb ulcer, likely source of bleeding. RECOMMENDATIONS: 1. Provide patient with Protonix drip. 2. Follow H and H and transfuse as needed. 3. Case discussed with Dr. John Uribe and need to transfer the patient to a hospital with Interventional Radiology capability, which he is agreeable to. 4. Case was also discussed with Dr. John Uribe over at [facility], who is willing to consider the case once the patient arrives for any sort of Interventional Radiology with selective embolization. Thank you for allowing me to participate. Please call me if any questions. JOB# [id number]
[2018-11-09] MEDS: Pantoprazole 80 MG in Sodium Chloride 0.9% 100 ML IV SCH (00:34)
[2018-11-09] MEDS: Albuterol/Ipratropium Neb 3 ML AERS HHN SCH (02:28)
--- NOTE | 2018-11-09 02:47 | Infectious Disease Prog Note ---
Infectious Disease Subjective - Review of Systems Service Date: 11/08/18 Events since last encounter: cc peptic ulcer bleed hpi- hg decreased ros no efrv o/e vss chest claer abd soft pulse Vital Signs - 24 hr 11/08/18 11/08/18 11/08/18 03:00 03:15 03:30 Temp 98.8 F HR 83 88 80 RR 17 BP 96/60 104/63 101/62 O2 Sat % 99 11/08/18 11/08/18 11/08/18 03:45 04:00 04:15 Temp 98.8 F HR 79 79 72 RR 19 BP 107/57 109/61 102/59 O2 Sat % 100 11/08/18 11/08/18 11/08/18 04:30 04:45 05:00 Temp 98.4 F HR 80 75 71 RR 13 BP 104/47 112/52 106/50 O2 Sat % 100 11/08/18 11/08/18 11/08/18 05:15 05:30 05:42 Temp HR 70 82 78 RR BP 117/56 128/58 107/45 O2 Sat % 11/08/18 11/08/18 11/08/18 05:45 06:00 06:15 Temp HR 76 72 90 RR 19 BP 115/62 100/54 90/53 O2 Sat % 100 11/08/18 11/08/18 11/08/18 06:30 06:42 06:45 Temp HR 86 78 83 RR BP 113/46 98/41 87/34 O2 Sat % 11/08/18 11/08/18 11/08/18 07:00 07:15 07:19 Temp HR 69 67 70 RR 14 15 BP 116/55 118/56 O2 Sat % 96 96 11/08/18 11/08/18 11/08/18 07:30 07:45 08:00 Temp 99.5 F HR 73 114 102 RR 21 BP 122/49 122/76 87/36 O2 Sat % 100 11/08/18 11/08/18 11/08/18 08:15 08:30 08:45 Temp HR 89 82 69 RR BP 87/36 81/41 109/46 O2 Sat % 11/08/18 11/08/18 11/08/18 09:00 09:15 09:30 Temp HR 85 82 89 RR 14 BP 132/55 132/56 108/60 O2 Sat % 100 11/08/18 11/08/18 11/08/18 09:45 10:00 10:15 Temp HR 81 72 71 RR 13 BP 111/62 104/53 132/52 O2 Sat % 100 11/08/18 11/08/18 11/08/18 10:30 10:45 11:00 Temp HR 82 70 70 RR 12 BP 118/62 147/59 147/59 O2 Sat % 100 11/08/18 11/08/18 11/08/18 11:15 11:30 11:45 Temp HR 71 65 71 RR BP 135/60 118/50 150/63 O2 Sat % 11/08/18 11/08/18 11/08/18 12:00 12:15 12:30 Temp 98.5 F HR 71 82 76 RR 15 BP 151/63 143/50 120/65 O2 Sat % 100 11/08/18 11/08/18 11/08/18 12:45 13:00 13:15 Temp HR 77 68 79 RR 15 BP 116/61 104/44 123/54 O2 Sat % 100 11/08/18 11/08/18 11/08/18 13:23 13:30 13:45 Temp HR 77 75 83 RR 17 BP 123/61 97/41 O2 Sat % 100 11/08/18 11/08/18 11/08/18 14:00 14:15 14:30 Temp HR 90 85 91 RR 21 BP 109/43 121/58 96/47 O2 Sat % 100 11/08/18 11/08/18 11/08/18 14:45 15:00 15:15 Temp HR 91 77 77 RR 16 BP 92/44 91/43 91/43 O2 Sat % 100 11/08/18 11/08/18 11/08/18 15:30 15:45 16:00 Temp 98.7 F HR 78 69 76 RR 17 BP 133/67 143/70 129/57 O2 Sat % 100 11/08/18 11/08/18 11/08/18 16:15 16:30 16:45 Temp HR 66 73 73 RR BP 120/54 130/65 130/65 O2 Sat % 11/08/18 11/08/18 11/08/18 17:00 17:15 17:30 Temp HR 69 70 102 RR 17 BP 117/48 125/49 105/59 O2 Sat % 100 11/08/18 11/08/18 11/08/18 17:45 18:00 18:15 Temp HR 93 94 83 RR 16 BP 111/69 112/65 97/46 O2 Sat % 100 11/08/18 11/08/18 11/08/18 18:30 18:45 19:00 Temp HR 87 75 80 RR 19 BP 105/52 95/44 100/52 O2 Sat % 100 11/08/18 11/08/18 11/08/18 19:15 19:30 19:32 Temp HR 79 75 83 RR 18 BP 107/49 122/47 O2 Sat % 100 11/08/18 11/08/18 11/08/18 19:45 20:00 20:15 Temp 99 F HR 66 67 70 RR 19 BP 129/57 111/48 123/61 O2 Sat % 99 11/08/18 11/08/18 11/08/18 20:30 20:45 21:00 Temp 99 F HR 88 86 78 RR 13 BP 114/48 104/57 112/56 O2 Sat % 100 11/08/18 11/08/18 11/08/18 21:15 21:30 21:45 Temp HR 68 78 73 RR BP 106/86 112/56 110/50 O2 Sat % 11/08/18 11/09/18 22:00 01:55 Temp 99 F HR 68 134 RR 12 18 BP 123/53 O2 Sat % 100 100 Laboratory Results - last 24 hr 11/06/18 11/08/18 11/08/18 11:54 06:20 06:20 WBC 22.9 H* D RBC 2.16 L Hgb 6.9 L* Hct 19.8 L* MCV 91.9 MCH 32.0 H MCHC Differential 34.8 RDW 12.8 Plt Count 388 MPV 7.5 Add Manual Diff YES Band Neutrophils % 0 Neutrophils (Manual) 87 H Lymphocytes 9 L Monocytes 4 Eosinophils 0 Basophils 0 Hypochromia 1+ PT INR Sodium 141 Potassium 3.9 Chloride 114 H Carbon Dioxide 20.0 L Anion Gap 10.9 BUN 35 H Creatinine 0.7 Est GFR ( Amer) > 60.0 Est GFR (Non-Af Amer) > 60.0 BUN/Creatinine Ratio 50.0 Glucose 179 H Calcium 7.1 L Blood Type A POSITIVE Antibody Screen NEGATIVE Crossmatch See Detail 11/08/18 11/08/18 06:20 17:50 WBC RBC Hgb 8.5 L Hct 25.2 L D MCV MCH MCHC Differential RDW Plt Count MPV Add Manual Diff Band Neutrophils % Neutrophils (Manual) Lymphocytes Monocytes Eosinophils Basophils Hypochromia PT 12.2 H INR 1.18 Sodium Potassium Chloride Carbon Dioxide Anion Gap BUN Creatinine Est GFR ( Amer) Est GFR (Non-Af Amer) BUN/Creatinine Ratio Glucose Calcium Blood Type Antibody Screen Crossmatch Microbiology 11/06/18 11:54 Blood - Preliminary NO GROWTH AFTER 48 HOURS 11/06/18 12:21 Nares - Final Diagnoses ANEMIA, UNSPECIFIED (11/06/18) HYPOKALEMIA (11/06/18) ESSENTIAL (PRIMARY) HYPERTENSION (11/06/18) PNEUMONIA, UNSPECIFIED ORGANISM (11/06/18) PEPTIC ULC, SITE UNSP, UNSP AC OR CHR, W/O HEMOR OR PERF (11/06/18) AGE-RELATED OSTEOPOROSIS W/O CURRENT PATHOLOGICAL FRACTURE (11/06/18) ACUTE KIDNEY FAILURE, UNSPECIFIED (11/06/18) WEAKNESS (11/06/18) SEVERE SEPSIS WITH SEPTIC SHOCK (11/06/18) Current Medications Acetaminophen (Tylenol Extra Strength) 500 mg PO Q6H PRN PRN Reason: Pain or Fever >101 Stop: 01/05/19 12:14 Albuterol/Ipratropium (Duoneb Neb) 3 ml HHN Q2H PRN PRN Reason: Shortness of Breath or Wheeze Stop: 01/05/19 12:14 Albuterol/Ipratropium (Duoneb Neb) 3 ml HHN Q6HRT ZANE Stop: 01/05/19 12:59 Last Admin: 11/09/18 02:28 Dose: Not Given Diltiazem HCl (Cardizem) 20 mg IVP Q4H PRN PRN Reason: Tachycardia HR Above 120 Stop: 01/06/19 17:17 Last Admin: 11/07/18 17:35 Dose: 20 mg Haloperidol (Haldol) 1 mg PO BID PRN; Protocol PRN Reason: Agitation Stop: 01/06/19 16:59 Piperacillin Sod/Tazobactam (Sod 3.375 gm/ Sodium Chloride) 50 mls @ 100 mls/ hr IV Q6HR [facility]ANE Stop: 01/05/19 17:59 Last Admin: 11/09/18 00:30 Dose: 100 mls/hr Vancomycin HCl 1.25 gm/ Sodium (Chloride) 250 mls @ 165 mls/hr IV Q12H [facility]ANE Stop: 01/06/19 08:59 Last Admin: 11/08/18 20:40 Dose: 165 mls/hr Potassium Chloride/Sodium Chloride (0.9% Ns W/20 Meq Kcl) 1,000 mls @ 100 mls/ hr IV .Q10H [facility]ANE Stop: 01/06/19 02:14 Last Admin: 11/08/18 18:36 Dose: 100 mls/hr Phenylephrine HCl 10 mg/ (Sodium Chloride) 250 mls @ 75 mls/hr IV TITR ZANE; Protocol Stop: 01/07/19 01:14 Last Titration: 11/08/18 14:16 Dose: 0 mcg/min, 0 mls/hr Norepinephrine Bitartrate 8 mg (/ Dextrose) 258 mls @ 0 mls/hr IV TITR PRN; Protocol PRN Reason: BP MAINTENANCE (PER PROTOCOL) Stop: 01/07/19 13:18 Last Titration: 11/09/18 02:41 Dose: 14 mcg/min, 27.09 mls/hr Pantoprazole Sodium 80 mg/ (Sodium Chloride) 100 mls @ 10 mls/hr IV Q10H [facility]ANE Stop: 01/07/19 14:59 Last Admin: 11/09/18 00:34 Dose: 10 mls/hr Lactobacillus Rhamnosus (Culturelle 15b) 1 each PO DAILY ZANE Stop: 01/08/19 08:59 Lorazepam (Ativan) 1 mg IM Q4HR PRN; Protocol PRN Reason: agitation Stop: 01/06/19 07:59 Miscellaneous (Vancomycin Iv Per Pharmacy) 1 ea MC PRN PRN PRN Reason: PROTOCOL Stop: 01/05/19 14:52 Miscellaneous (Probiotic Screen) 1 ea PRN PRN PRN Reason: PROTOCOL Stop: 01/07/19 11:59 Pantoprazole Sodium (Protonix) 40 mg IVP DAILY ZANE Stop: 01/06/19 08:59 Last Admin: 11/08/18 08:01 Dose: 40 mg Potassium Chloride (Klor-Con) 20 meq PO DAILY ZANE Stop: 01/06/19 08:59 Last Admin: 11/08/18 09:29 Dose: Not Given Subjective: cc hypotension/ stool impaction hpi- kub shows stool impaction , ct ordeered hg 7.3 prbc if ok with gi scheduled for egd ros no efvr o/e vs chets claer anbs soft ext pulse Vital Signs - 24 hr 11/07/18 11/07/18 11/07/18 03:00 03:15 03:30 Temp HR 74 87 73 RR 15 BP 102/49 91/54 91/54 O2 Sat % 100 11/07/18 11/07/18 11/07/18 03:45 04:00 04:15 Temp 97.9 F HR 73 79 79 RR 16 BP 96/49 99/51 98/56 O2 Sat % 100 11/07/18 11/07/18 11/07/18 04:30 04:45 05:00 Temp HR 81 77 81 RR 18 BP 98/56 95/53 102/53 O2 Sat % 100 11/07/18 11/07/18 11/07/18 05:15 05:30 05:45 Temp HR 73 73 78 RR BP 96/56 99/56 107/60 O2 Sat % 11/07/18 11/07/18 11/07/18 06:00 06:15 06:30 Temp HR 78 92 69 RR 16 BP 107/60 93/43 107/61 O2 Sat % 100 11/07/18 11/07/18 11/07/18 06:45 07:00 07:15 Temp HR 67 68 72 RR 17 BP 103/52 100/53 107/61 O2 Sat % 99 11/07/18 11/07/18 11/07/18 07:17 07:30 07:45 Temp HR 68 68 78 RR 14 BP 106/46 96/56 O2 Sat % 100 11/07/18 11/07/18 11/07/18 08:00 08:15 08:30 Temp 97.7 F HR 96 74 79 RR 18 BP 107/72 103/47 108/49 O2 Sat % 100 11/07/18 11/07/18 11/07/18 08:45 09:00 09:15 Temp HR 84 77 77 RR 17 BP 114/57 102/58 102/57 O2 Sat % 100 11/07/18 11/07/18 11/07/18 09:30 09:45 10:00 Temp HR 76 79 79 RR 14 BP 104/62 103/56 103/56 O2 Sat % 100 11/07/18 11/07/18 11/07/18 10:15 10:30 10:45 Temp HR 74 71 77 RR BP 109/58 106/60 104/60 O2 Sat % 11/07/18 11/07/18 11/07/18 11:00 11:15 11:30 Temp 98.3 F HR 79 75 75 RR 18 BP 110/64 122/65 106/44 O2 Sat % 98 11/07/18 11/07/18 11/07/18 11:45 12:00 12:15 Temp 98 F HR 75 87 69 RR 18 BP 104/71 131/66 112/59 O2 Sat % 100 11/07/18 11/07/18 11/07/18 12:30 12:45 13:00 Temp HR 76 74 80 RR 19 BP 116/56 121/67 120/70 O2 Sat % 100 11/07/18 11/07/18 11/07/18 13:15 13:25 13:30 Temp HR 80 79 83 RR 17 BP 104/48 102/83 O2 Sat % 100 11/07/18 11/07/18 11/07/18 13:45 14:00 14:15 Temp HR 89 83 85 RR 18 BP 100/75 115/62 114/58 O2 Sat % 100 11/07/18 11/07/18 11/07/18 15:00 16:00 17:00 Temp 97.6 F HR 85 83 74 RR 18 18 16 BP 112/56 101/53 94/61 O2 Sat % 100 100 100 11/07/18 11/07/18 11/07/18 17:06 17:15 17:30 Temp HR 195 186 78 RR BP 88/59 80/53 83/48 O2 Sat % 11/07/18 11/07/18 11/07/18 17:35 18:00 18:35 Temp HR 195 87 82 RR 16 BP 106/57 O2 Sat % 100 11/07/18 11/07/18 11/07/18 19:00 19:15 19:30 Temp HR 85 80 81 RR 18 BP 120/67 117/66 99/66 O2 Sat % 99 11/07/18 11/07/18 11/07/18 19:45 19:46 20:00 Temp 98.1 F HR 78 74 75 RR 18 20 BP 107/66 105/67 O2 Sat % 100 100 11/07/18 11/07/18 11/07/18 20:15 20:30 20:45 Temp HR 85 75 85 RR BP 98/60 111/75 98/60 O2 Sat % 11/07/18 11/07/18 11/07/18 21:00 21:15 21:30 Temp 98.4 F HR 78 85 75 RR 19 BP 113/56 123/60 113/78 O2 Sat % 100 11/07/18 11/07/18 11/07/18 21:45 22:00 22:15 Temp 98.6 F HR 76 76 77 RR 12 BP 99/47 99/59 109/63 O2 Sat % 100 11/07/18 11/07/18 11/07/18 22:30 22:45 23:00 Temp 98.5 F HR 83 76 71 RR 19 BP 106/55 92/54 123/63 O2 Sat % 100 11/07/18 11/07/18 11/07/18 23:15 23:30 23:45 Temp HR 106 113 118 RR BP 91/50 96/60 93/42 O2 Sat % 11/08/18 11/08/18 11/08/18 00:00 00:02 00:15 Temp 98.4 F HR 118 120 97 RR 14 16 BP 88/52 90/51 O2 Sat % 100 95 11/08/18 11/08/18 11/08/18 00:30 00:45 01:00 Temp 98.4 F HR 94 98 83 RR 20 BP 86/53 89/51 78/48 O2 Sat % 100 11/08/18 11/08/18 11/08/18 01:15 01:30 01:45 Temp HR 90 97 89 RR BP 80/49 97/47 99/47 O2 Sat % 11/08/18 11/08/18 11/08/18 02:00 02:15 02:30 Temp 98.4 F HR 81 84 84 RR 13 BP 103/47 93/46 94/54 O2 Sat % 100 Laboratory Results - last hr 11/06/18 11/07/18 11/07/18 11:54 04:05 04:05 WBC 15.7 H RBC 2.56 L Hgb 7.8 L* Hct 23.2 L MCV 90.6 MCH 30.3 MCHC Differential 33.4 RDW 12.8 Plt Count 401 H MPV 8.2 Add Manual Diff YES Neutrophils % Band Neutrophils % 1 Lymphocytes % Monocytes % Eosinophils % Basophils % Neutrophils (Manual) 84 H Lymphocytes 10 L Monocytes 5 Sodium 139 Potassium 3.7 Chloride 110 H Carbon Dioxide 20.7 L Anion Gap 12.0 BUN 48 H Creatinine 0.7 Est GFR ( Amer) > 60.0 Est GFR (Non-Af Amer) > 60.0 BUN/Creatinine Ratio 68.6 Glucose 147 H Calcium 7.5 L Total Bilirubin 0.6 AST 15 ALT 17 Alkaline Phosphatase 61 Total Protein 4.4 L Albumin 2.2 L Globulin 2.2 Albumin/Globulin Ratio 1.0 Vancomycin Trough Blood Type A POSITIVE Antibody Screen NEGATIVE Crossmatch See Detail 11/07/18 11/07/18 16:45 20:00 WBC 11.4 H RBC 2.44 L Hgb 7.3 L* Hct 21.8 L MCV 89.4 MCH 30.0 MCHC Differential 33.5 RDW 12.9 Plt Count 376 MPV 7.0 Add Manual Diff Neutrophils % 80.7 H Band Neutrophils % Lymphocytes % 11.8 L Monocytes % 6.7 Eosinophils % 0.4 Basophils % 0.4 Neutrophils (Manual) Lymphocytes Monocytes Sodium Potassium Chloride Carbon Dioxide Anion Gap BUN Creatinine Est GFR ( Amer) Est GFR (Non-Af Amer) BUN/Creatinine Ratio Glucose Calcium Total Bilirubin AST ALT Alkaline Phosphatase Total Protein Albumin Globulin Albumin/Globulin Ratio Vancomycin Trough 13.7 H Blood Type Antibody Screen Crossmatch Microbiology 11/06/18 12:21 Nares - Final 11/06/18 11:54 Blood - Preliminary NO GROWTH AFTER 24 HOURS Diagnoses ANEMIA, UNSPECIFIED (11/06/18) HYPOKALEMIA (11/06/18) ESSENTIAL (PRIMARY) HYPERTENSION (11/06/18) PNEUMONIA, UNSPECIFIED ORGANISM (11/06/18) PEPTIC ULC, SITE UNSP, UNSP AC OR CHR, W/O HEMOR OR PERF (11/06/18) AGE-RELATED OSTEOPOROSIS W/O CURRENT PATHOLOGICAL FRACTURE (11/06/18) ACUTE KIDNEY FAILURE, UNSPECIFIED (11/06/18) WEAKNESS (11/06/18) SEVERE SEPSIS WITH SEPTIC SHOCK (11/06/18) Current Medications Acetaminophen (Tylenol Extra Strength) 500 mg PO Q6H PRN PRN Reason: Pain or Fever >101 Stop: 01/05/19 12:14 Albuterol/Ipratropium (Duoneb Neb) 3 ml HHN Q2H PRN PRN Reason: Shortness of Breath or Wheeze Stop: 01/05/19 12:14 Albuterol/Ipratropium (Duoneb Neb) 3 ml HHN Q6HRT [facility]ANE Stop: 01/05/19 12:59 Last Admin: 11/08/18 00:02 Dose: Not Given Diltiazem HCl (Cardizem) 20 mg IVP Q4H PRN PRN Reason: Tachycardia HR Above 120 Stop: 01/06/19 17:17 Last Admin: 11/07/18 17:35 Dose: 20 mg Haloperidol (Haldol) 1 mg PO BID PRN; Protocol PRN Reason: Agitation Stop: 01/06/19 16:59 Piperacillin Sod/Tazobactam (Sod 3.375 gm/ Sodium Chloride) 50 mls @ 100 mls/ hr IV Q6HR ZANE Stop: 01/05/19 17:59 Last Infusion: 11/08/18 01:15 Dose: Infused Norepinephrine Bitartrate 4 mg (/ Dextrose) 254 mls @ 30.48 mls/hr IV TITR PRN ; Protocol PRN Reason: BP MAINTENANCE (PER PROTOCOL) Stop: 01/05/19 15:59 Last Admin: 11/08/18 02:50 Dose: 25 mcg/min, 95.25 mls/hr Vancomycin HCl 1.25 gm/ Sodium (Chloride) 250 mls @ 165 mls/hr IV Q12H [facility]ANE Stop: 01/06/19 08:59 Last Infusion: 11/07/18 22:05 Dose: Infused Potassium Chloride/Sodium Chloride (0.9% Ns W/20 Meq Kcl) 1,000 mls @ 100 mls/ hr IV .Q10H [facility]ANE Stop: 01/06/19 02:14 Last Admin: 11/08/18 01:26 Dose: 100 mls/hr Phenylephrine HCl 10 mg/ (Sodium Chloride) 250 mls @ 75 mls/hr IV TITR ZANE; Protocol Stop: 01/07/19 01:14 Lorazepam (Ativan) 1 mg IM Q4HR PRN; Protocol PRN Reason: agitation Stop: 01/06/19 07:59 Miscellaneous (Vancomycin Iv Per Pharmacy) 1 ea MC PRN PRN PRN Reason: PROTOCOL Stop: 01/05/19 14:52 Pantoprazole Sodium (Protonix) 40 mg IVP DAILY ZANE Stop: 01/06/19 08:59 Last Admin: 11/07/18 09:05 Dose: 40 mg Potassium Chloride (Klor-Con) 20 meq PO DAILY ZANE Stop: 01/06/19 08:59 Last Admin: 11/07/18 08:02 Dose: Not Given Infectious Disease Objective - Results Result Diagrams: 11/08/18 17:50 11/08/18 06:20 Recent Labs: Laboratory Last Values WBC 22.9 Th/cmm (4.8-10.8) H* D 11/08/18 06:20 RBC 2.16 Mil/cmm (3.80-5.80) L 11/08/18 06:20 Hgb 8.5 gm/dL (12-16) L 11/08/18 17:50 Hct 25.2 % (41.0-60) L D 11/08/18 17:50 MCV 91.9 fl (80-99) 11/08/18 06:20 MCH 32.0 pg (27.0-31.0) H 11/08/18 06:20 MCHC Differential 34.8 pg (28.0-36.0) 11/08/18 06:20 RDW 12.8 % (11.5-20.0) 11/08/18 06:20 Plt Count 388 Th/cmm (150-400) 11/08/18 06:20 MPV 7.5 fl 11/08/18 06:20 Add Manual Diff YES 11/08/18 06:20 Neutrophils % 80.7 % (40.0-80.0) H 11/07/18 16:45 Band Neutrophils % 0 % (0-10) 11/08/18 06:20 Lymphocytes % 11.8 % (20.0-50.0) L 11/07/18 16:45 Monocytes % 6.7 % (2.0-10.0) 11/07/18 16:45 Eosinophils % 0.4 % (0.0-5.0) 11/07/18 16:45 Basophils % 0.4 % (0.0-2.0) 11/07/18 16:45 Neutrophils (Manual) 87 % (40-80) H 11/08/18 06:20 Lymphocytes 9 % (20-50) L 11/08/18 06:20 Monocytes 4 % (2-10) 11/08/18 06:20 Eosinophils 0 % (0-5) 11/08/18 06:20 Basophils 0 % (0-3) 11/08/18 06:20 Hypochromia 1+ 11/08/18 06:20 Smear Path Review 11/06/18 11:54 PT 12.2 SECONDS (9.5-11.5) H 11/08/18 06:20 INR 1.18 (0.5-1.4) 11/08/18 06:20 PTT (Actin FS) 26.5 SECONDS (26.0-38.0) 11/06/18 11:20 Sodium 141 mEq/L (136-145) 11/08/18 06:20 Potassium 3.9 mEq/L (3.5-5.1) 11/08/18 06:20 Chloride 114 mEq/L (98-107) H 11/08/18 06:20 Carbon Dioxide 20.0 mEq/L (21.0-31.0) L 11/08/18 06:20 Anion Gap 10.9 (7.0-16.0) 11/08/18 06:20 BUN 35 mg/dL (7-25) H 11/08/18 06:20 Creatinine 0.7 mg/dL (0.7-1.3) 11/08/18 06:20 Est GFR ( Amer) > 60.0 ml/min (>90) 11/08/18 06:20 Est GFR (Non-Af Amer) > 60.0 ml/min 11/08/18 06:20 BUN/Creatinine Ratio 50.0 11/08/18 06:20 Glucose 179 mg/dL (70-105) H 11/08/18 06:20 Whole Bld Lactic Acid 1.34 mmol/L (0.60-1.99) 11/06/18 11:20 Calcium 7.1 mg/dL (8.6-10.3) L 11/08/18 06:20 Phosphorus 4.1 mg/dL (2.5-5.0) 11/06/18 11:20 Magnesium 2.2 mg/dL (1.9-2.7) 11/06/18 11:20 Total Bilirubin 0.6 mg/dL (0.3-1.0) 11/07/18 04:05 AST 15 U/L (13-39) 11/07/18 04:05 ALT 17 U/L (7-52) 11/07/18 04:05 Alkaline Phosphatase 61 U/L (34-104) 11/07/18 04:05 Troponin I 0.01 ng/mL (0.01-0.05) 11/06/18 11:20 Total Protein 4.4 gm/dL (6.0-8.3) L 11/07/18 04:05 Albumin 2.2 gm/dL (4.2-5.5) L 11/07/18 04:05 Globulin 2.2 gm/dL 11/07/18 04:05 Albumin/Globulin Ratio 1.0 (1.0-1.8) 11/07/18 04:05 TSH 0.98 uIU/ml (0.34-5.60) 11/06/18 11:20 Urine Source CLEAN C 11/06/18 12:00 Urine Color YELLOW 11/06/18 12:00 Urine Clarity HAZY (CLEAR) 11/06/18 12:00 Urine pH 5.5 (4.6 - 8.0) 11/06/18 12:00 Ur Specific [place] 1.020 (1.005-1.030) 11/06/18 12:00 Urine Protein TRACE mg/dL (NEGATIVE) 11/06/18 12:00 Urine Glucose (UA) NEGATIVE mg/dL (NEGATIVE) 11/06/18 12:00 Urine Ketones TRACE mg/dL (NEGATIVE) 11/06/18 12:00 Urine Blood NEGATIVE (NEGATIVE) 11/06/18 12:00 Urine Nitrate NEGATIVE (NEGATIVE) 11/06/18 12:00 Urine Bilirubin SMALL (NEGATIVE) H 11/06/18 12:00 Urine Urobilinogen 1.0 E.U./dL (0.2 - 1.0) 11/06/18 12:00 Ur Leukocyte Esterase NEGATIVE (NEGATIVE) 11/06/18 12:00 Urine RBC 0-2 /hpf (0-5) H 11/06/18 12:00 Urine WBC 2-5 /hpf (0-5) 11/06/18 12:00 Ur Epithelial Cells OCCASIONAL /lpf (FEW) 11/06/18 12:00 Amorphous Sediment MODERATE URATES (NONE SEEN) 11/06/18 12:00 Urine Bacteria NONE SEEN /hpf (NONE SEEN) 11/06/18 12:00 Vancomycin Trough 13.7 ug/mL (5-10) H 11/07/18 20:00 Urine Opiates Screen NEGATIVE (NEGATIVE) 11/06/18 12:00 Urine Methadone Screen NEGATIVE (NEGATIVE) 11/06/18 12:00 Ur Barbiturates Screen NEGATIVE (NEGATIVE) 11/06/18 12:00 Ur Tricyclics Screen NEGATIVE (NEGATIVE) 11/06/18 12:00 Ur Phencyclidine Scrn NEGATIVE (NEGATIVE) 11/06/18 12:00 Amphetamines Screen NEGATIVE (NEGATIVE) 11/06/18 12:00 U Methamphetamines Scrn NEGATIVE (NEGATIVE) 11/06/18 12:00 U Benzodiazepines Scrn NEGATIVE (NEGATIVE) 11/06/18 12:00 U Cocaine Metab Screen NEGATIVE (NEGATIVE) 11/06/18 12:00 U Cannabinoids Screen NEGATIVE (NEGATIVE) 11/06/18 12:00 Blood Type A POSITIVE 11/06/18 11:54 Antibody Screen NEGATIVE 11/06/18 11:54 Crossmatch See Detail 11/06/18 11:54 - Physical Exam Vitals and I&O: Vital Signs Temp 99 F 11/08/18 22:00 Pulse 134 11/09/18 01:55 Resp 18 11/09/18 01:55 BP 123/53 11/08/18 22:00 Pulse Ox 100 11/09/18 01:55 Intake & Output 11/08/18 11/08/18 11/09/18 06:59 18:59 06:59 Intake Total 2633.133 2799.50 337.138 Output Total 303 Balance 2330.133 2799.50 337.138 Weight (lbs) 59.137 kg 64.501 kg Intake: Intake, IV Amount 2083.133 2299.50 337.138 0.9% NS w/20 mEq KCL 1, 1000 1000 000 ml @ 100 mls/hr IV . Q10H [facility] Rx#:[id number] Norepinephrine 4 mg In 433.133 508.00 Dextrose 5% 250 ml @ 8 MCG/MIN 30.48 mls/hr IV TITR PRN Rx#:[id number] Norepinephrine 8 mg In 201.305 Dextrose 5% 250 ml @ Per Protocol IV TITR PRN Rx#: [id number] Pantoprazole 80 mg In 85.833 Sodium Chloride 0.9% 100 ml @ 10 mls/hr IV Q10H [facility] Rx#:[id number] Phenylephrine HCl 10 mg 250 491.50 In Sodium Chloride 0.9% 250 ml @ 50 MCG/MIN 75 mls/hr IV TITR [facility] Rx#: [id number] Piperacillin Sodium/ 150 50 50 Tazobact 3.375 gm In Sodium Chloride 0.9% 50 ml @ 100 mls/hr IV Q6HR [facility] Rx#:[id number] Vancomycin HCl 1.25 gm In 250 250 Sodium Chloride 0.9% 250 ml @ 165 mls/hr IV Q12H [facility] Rx#:[id number] Oral 300 Blood Product 250 500 Output: Urine 300 Urine/Stool Mix 3 Other: # Voids 4 4 # Bowel Movements 2 6 Stool Characteristics Soft Soft Soft Black Black Black Weight Source Bedscale Bedscale Active Medications: Current Medications Acetaminophen (Tylenol Extra Strength) 500 mg PO Q6H PRN PRN Reason: Pain or Fever >101 Stop: 01/05/19 12:14 Albuterol/Ipratropium (Duoneb Neb) 3 ml HHN Q2H PRN PRN Reason: Shortness of Breath or Wheeze Stop: 01/05/19 12:14 Albuterol/Ipratropium (Duoneb Neb) 3 ml HHN Q6HRT [facility] Stop: 01/05/19 12:59 Last Admin: 11/09/18 02:28 Dose: Not Given Diltiazem HCl (Cardizem) 20 mg IVP Q4H PRN PRN Reason: Tachycardia HR Above 120 Stop: 01/06/19 17:17 Last Admin: 11/07/18 17:35 Dose: 20 mg Haloperidol (Haldol) 1 mg PO BID PRN; Protocol PRN Reason: Agitation Stop: 01/06/19 16:59 Piperacillin Sod/Tazobactam (Sod 3.375 gm/ Sodium Chloride) 50 mls @ 100 mls/ hr IV Q6HR [facility] Stop: 01/05/19 17:59 Last Admin: 11/09/18 00:30 Dose: 100 mls/hr Vancomycin HCl 1.25 gm/ Sodium (Chloride) 250 mls @ 165 mls/hr IV Q12H [facility] Stop: 01/06/19 08:59 Last Admin: 11/08/18 20:40 Dose: 165 mls/hr Potassium Chloride/Sodium Chloride (0.9% Ns W/20 Meq Kcl) 1,000 mls @ 100 mls/ hr IV .Q10H [facility] Stop: 01/06/19 02:14 Last Admin: 11/08/18 18:36 Dose: 100 mls/hr Phenylephrine HCl 10 mg/ (Sodium Chloride) 250 mls @ 75 mls/hr IV TITR [facility]; Protocol Stop: 01/07/19 01:14 Last Titration: 11/08/18 14:16 Dose: 0 mcg/min, 0 mls/hr Norepinephrine Bitartrate 8 mg (/ Dextrose) 258 mls @ 0 mls/hr IV TITR PRN; Protocol PRN Reason: BP MAINTENANCE (PER PROTOCOL) Stop: 01/07/19 13:18 Last Titration: 11/09/18 02:41 Dose: 14 mcg/min, 27.09 mls/hr Pantoprazole Sodium 80 mg/ (Sodium Chloride) 100 mls @ 10 mls/hr IV Q10H [facility] Stop: 01/07/19 14:59 Last Admin: 11/09/18 00:34 Dose: 10 mls/hr Lactobacillus Rhamnosus (Culturelle 15b) 1 each PO DAILY [facility] Stop: 01/08/19 08:59 Lorazepam (Ativan) 1 mg IM Q4HR PRN; Protocol PRN Reason: agitation Stop: 01/06/19 07:59 Miscellaneous (Vancomycin Iv Per Pharmacy) 1 ea MC PRN PRN PRN Reason: PROTOCOL Stop: 01/05/19 14:52 Miscellaneous (Probiotic Screen) 1 ea PRN PRN PRN Reason: PROTOCOL Stop: 01/07/19 11:59 Pantoprazole Sodium (Protonix) 40 mg IVP DAILY [facility] Stop: 01/06/19 08:59 Last Admin: 11/08/18 08:01 Dose: 40 mg Potassium Chloride (Klor-Con) 20 meq PO DAILY [facility]ANE Stop: 01/06/19 08:59 Last Admin: 11/08/18 09:29 Dose: Not Given Infectious Disease Assmt/Plan - Problem List Patient Problems: All Active Problems POOR ORAL INTAKE (Acute) Nutritional Asmnt/Malnutr-PDOC - Dietary Evaluation Malnutrition Findings (Please click <Entered> for more info): Nutritional Asmnt/Malnutrition Start: 11/07/18 13: 23 Text: Status: Complete Freq: Protocol: Document 11/07/18 13:24 [email or web address] (Rec: 11/07/18 13:33 [email or web address]) Nutritional Asmnt/Malnutrition Patient General Information Nutritional Screening High Risk Diagnosis sepsis, anemia, hypotension Pertinent Medical Hx/Surgical Hx peptic ulcer disease, gastritis, arthritis, osteoporosis, HTN, BPH, schizophrenia Subjective Information Pt was seen in bed at time of visit, with 1:1 sitter. Pt did not eat breakfast and only requests coffee. PO intake is 0-10% per EMR. Pt apeared some agitated, did not provide any reason of poor PO intake. Current Diet Order/ Nutrition Support regular Pertinent Medications vancomycin, levophed, protonix , KCl/NaCl 0.9%ns, piperacillin Pertinent Labs 11/07 Cl 110, BUN 48, glucose 147, ca 7.5, alb 2.2 11/06 Na 133, K 3.3, BUN 73, glucose 121, ca 8.5, alb 2.7 Nutritional Hx/Data Height 1.63 m Height (Calculated Centimeters) 162.6 Current Weight (lbs) 58.967 kg Weight (Calculated Kilograms) 59.0 Weight (Calculated Grams) 46181.0 [place] Body Weight 130 Body Mass Index (BMI) 22.3 Weight Status Approriate GI Symptoms GI Symptoms None Last BM 11/06 x3 Difficult in: None Food Allergies No Skin Integrity/Comment: sacral wound, mike 18 Current %PO Negligible < 25% Estimated Nutritional Goals BEE in Kcals: Using Current wt Calories/Kcals/Kg 25-30 Kcals Calculated 5370-2366 Protein: Using Current wt Protein g/k-1.2 Protein Calculated 59-70 Fluid: ml 8289-5710 (1ml/kcal) Nutritional Problem 2. Problem Problem altered nutrition related labs Etiology fluid/electrolyte imbalance Signs/Symptoms: Cl 110, BUN 48-73, Na 133, K 3 .3 1. Problem Problem inadequate energy/protein intake Etiology possible poor appetite Signs/Symptoms: PO intake 0-10% Malnutrition Alert Is there a minimum of two criteria No selected? Query Text:Check all the applicable criteria. A minimum of two criteria are recommended for diagnosis of either severe or non-severe malnutrition. Malnutrition Related to Morbid Obesity Malnutrition related to morbid obesity No Intervention/Recommendation Comments 1. Continue with regular diet as ordered. 2. Add ensure TID for extra kcal and protein 3. will consider provide Michael BID after wound assessment 4. MD to replace electrolytes 5. Monitor PO intake, wt, labs and skin integrity 6. F/U as high risk in 2-3 days Expected Outcomes/Goals Expected Outcomes/Goals 1. PO intake to meet at least 75% of nutritional needs. 2. Wt stability, skin integrity to improve, labs to approach WNL. Reviewed by Sherice Stearns RD
--- NOTE | 2018-11-09 04:04 | Progress Notes ---
DATE: 11/08/2018 INTERNAL MEDICINE CONSULTATION FOLLOWUP SUBJECTIVE: The patient still in ICU, very confused, agitated. OBJECTIVE: VITAL SIGNS: Stable. LUNGS: Show occasional rhonchi, occasional crepitation, no bronchial breathing. HEART: First and second heart normal. ABDOMEN: Soft, generalized tenderness, no guarding, no rigidity, bowel sounds present. MUSCULOSKELETAL SYSTEM: Show arthritis. NEUROLOGIC: The patient is very confused. LABORATORY DATA: Include white count 22.9, hemoglobin 6.9, hematocrit 19.8, platelet count of 388. Sodium 141, potassium 3.9, chloride 114, bicarbonate 20, BUN 30, creatinine 0.7, blood sugar of 179. The patient has been seen by Gastroenterology. The patient is scheduled for endoscopy today. The patient is receiving 2 units of packed cells. Infectious Disease consultation reviewed. MEDICAL DIAGNOSES: Remain the same. Sepsis and anemia, status post-acute renal failure, acute GI bleed, workup as written down. The patient will have a followup GI. The patient is receiving 2 units of packed cells today. JOB# [id number]
[2018-11-09 05:40] LABS: pH 7.11 (7.35-7.45)
[2018-11-09 05:41] LABS: ALLEN TEST yes
[2018-11-09] MEDS ORDERED: Midazolam 1mg/ml 2 ml vial IV ONE ×2 (07:50→08:03)
[2018-11-09] MEDS ORDERED: Phenylephrine HCl 50 MG in Sodium Chloride 0.9% 250 ML IV SCH (08:00)
[2018-11-09 08:09] LABS: ALB/GLOB RATIO 1.2 (1.0-1.8); ALKALINE PHOSPHATASE 79 U/L (34-104); ANION GAP 22.7 (7.0-16.0); BILIRUBIN,TOTAL 1.2 mg/dL (0.3-1.0); BUN - UREA NITROGEN 30 mg/dL (7-25); CALCIUM SERUM 7.3 mg/dL (8.6-10.3); CHLORIDE 118 mEq/L (98-107); CREATININE - SERUM 0.9 mg/dL (0.7-1.3); GFR AFRICAN-AMERICAN > 60.0 ml/min (>90); GFR NON AFRICAN-AMERICAN > 60.0 ml/min; GLUCOSE 170 mg/dL (70-105); POTASSIUM SERUM 5.1 mEq/L (3.5-5.1); SGOT 65 U/L (13-39); SGPT/ALT 65 U/L (7-52); SODIUM SERUM 144 mEq/L (136-145); TOTAL PROTEIN,SERUM 3.7 gm/dL (6.0-8.3)
[2018-11-09 08:10] LABS: CARBON DIOXIDE 8.4 mEq/L (21.0-31.0)
[2018-11-09] MEDS ORDERED: Sodium Bicarbonate 8.4% 50mEq PFS IVP ONE ×2 (08:20→08:25)
[2018-11-09 08:28] LABS: MEAN PLATELET VOLUME 7.9 fl
[2018-11-09 08:32] LABS: RED BLOOD COUNT 1.61 Mil/cmm (3.80-5.80); WHITE BLOOD COUNT 20.3 Th/cmm (4.8-10.8)
[2018-11-09 08:33] LABS: HEMOGLOBIN 4.8 gm/dL (12-16)
[2018-11-09 08:34] LABS: HEMATOCRIT 15.2 % (41.0-60); MEAN CORPUSCULAR HEMOGLOBIN 29.8 pg (27.0-31.0); MEAN CORPUSCULAR HGB CONC 31.7 pg (28.0-36.0); PLATELET COUNT 285 Th/cmm (150-400); RED CELL DISTRIBUTION WIDTH 14.4 % (11.5-20.0)
--- NOTE | 2018-11-09 08:38 | Diagnostic Imaging Report ---
Portable chest x-ray HISTORY: Respiratory arrest, status post intubation Compared with prior exam of 10/30/2018, endotracheal tube has been inserted. The tip is approximately 1.5 cm above the alejandra. No focal pulmonary processes are seen. The heart size is normal. IMPRESSION: 1. Endotracheal tube placement as noted above 2. No focal pulmonary processes
[2018-11-09 08:57] LABS: BAND NEUTROPHILE 2 % (0-10); BASOPHIL 0 % (0-3); EOSINOPHIL 0 % (0-5); LYMPHOCYTE 8 % (20-50); MONOCYTE 6 % (2-10); NEUTROPHILS 84 % (40-80)
[2018-11-09] MEDS ORDERED: Lactobacillus Rhamnosus GG 15 Billion CFU CAP.SPRINK PO SCH (09:00)
[2018-11-09 10:56] LABS: ALLEN TEST PASS; pH 7.14 (7.35-7.45)
--- NOTE | 2018-11-09 14:14 | Pathology Report ---
[id number] Collection Date: 11/08/2018 Surgeon: Dr. Jossy Corona Specimen Description: Antrum biopsy. Gross Description: Received in formalin are two ellis soft tissue fragments ranging from 0.1 to 0.2 cm in greatest dimension. Totally submitted in one cassette. Microscopic Description: The histologic sections show gastric mucosa with mild chronic inflammation present consisting of lymphocytes and plasma cells. The Giemsa stain shows no evidence for Helicobacter pylori. Diagnosis: 1. Mild chronic gastritis, antrum biopsy. 2. The Giemsa stain is negative for Helicobacter pylori. JOB# [id number]
--- NOTE | 2018-11-09 18:19 | Cardiology ---
11/08/[address] John Uribe. M-MODE ECHOCARDIOGRAM: Technically poor. 2D ECHO: Only structure visualized in apical four-chamber view, which showed normal sized left ventricle, left atrium, right ventricle, right atrium, tricuspid and mitral valve. Ejection fraction 65%. Doppler study shows trace tricuspid regurgitation, mild mitral regurgitation. Right ventricular systolic pressure 38 mmHg. JOB# [id number]
--- NOTE | 2018-11-09 19:52 | Discharge Summary ---
DATE OF DISCHARGE: 11/09/2018 EXPIRATION SUMMARY The patient on 11/09/2018. The patient is a 68-year-old male admitted on 11/06/2018. On admission, the patient was found to have severe anemia and guaiac positive stools. The patient was found to be in sepsis, hypotension and acute renal failure. The patient was admitted to ICU, seen by Infectious Disease physician, started on IV antibiotics. The patient required multiple blood transfusions during the hospitalization. The patient also had seen by hood fitter, Dr. Gagandeep Corona. The patient had upper GI endoscopy done yesterday on 11/08/2018, was found to have a large duodenal ulcer and meanwhile, Dr. Corona was making arrangement to the patient to transfer to a higher level of care of [facility] for further possible treatment. The patient coded today at 11/09/2018. The patient had multiple H and H's were done; the patient did not make it. FINAL DIAGNOSES AT THE TIME OF EXPIRATION: Duodenal ulcer, anemia, sepsis, acute renal failure and chronic obstructive pulmonary disease. JOB# [id number]
--- NOTE | 2018-11-10 09:04 | Diagnostic Imaging Report ---
Nuclear medicine HIDA scan HISTORY: Pain, gallbladder sludge COMPARISON: Abdominal ultrasound 11/07/2018 Technique/procedure: 5.0 of technetium labeled Choletec was administered intravenously and multiple scintigraphic images were obtained for 7 minutes. As patient was not able to tolerate the exam due to patient's medical condition, the exam was stopped at this point.
== END 2018-11-09 09:20 | disposition expired | DRG 871 ==
LOC: ER 10:56 → ICU 12:40
PROVIDERS: ADMIT Internal Medicine; ATTEND Internal Medicine
PROC: 30233N1 Transfusion of Nonautologous Red Blood Cells into Peripheral Vein, Percutaneous Approach (ICD-10-PCS; 2018-11-06)
PROC: 0DB68ZX Excision of Stomach, Via Natural or Artificial Opening Endoscopic, Diagnostic (ICD-10-PCS; principal; 2018-11-08)
DX: A41.9 Sepsis, unspecified organism (principal); R65.21 Severe sepsis with septic shock; J18.9 Pneumonia, unspecified organism; K26.4 Chronic or unspecified duodenal ulcer with hemorrhage; K29.71 Gastritis, unspecified, with bleeding; N17.9 Acute kidney failure, unspecified; J44.0 Chronic obstructive pulmonary disease with (acute) lower respiratory infection; N39.0 Urinary tract infection, site not specified; I10 Essential (primary) hypertension; M81.0 Age-related osteoporosis without current pathological fracture; E87.6 Hypokalemia; N40.0 Benign prostatic hyperplasia without lower urinary tract symptoms; F20.9 Schizophrenia, unspecified; M19.90 Unspecified osteoarthritis, unspecified site; R62.7 Adult failure to thrive; F29 Unspecified psychosis not due to a substance or known physiological condition; D50.9 Iron deficiency anemia, unspecified; K56.41 Fecal impaction; K44.9 Diaphragmatic hernia without obstruction or gangrene
CPT/HCPCS: 36415-UA; 36600-90; 71045-TC; 74000-TC; 76700-TC; 78226-TC; 80048-TC; 80053-TC; 80202-TC; 80307; 81001-TC; 82270-TC; 82803-TC; 83605; 83735-TC; 84100-TC; 84443-TC; 84484-TC; 85007-TC; 85014-TC; 85018-TC; 85025-TC; 85610-TC; 86850-TC; 86900-TC; 86901-TC; 86922-TC; 90779; 92950; 93005; 94002; 94640; 94760; 96375; A9537; C9113; J2060; J2250; J2370; J2543; J2704; J3370; J3480; J3490; J7030; J7040; P9016; X6452; Z7610